=== PATIENT | male | born 1945 | race Caucasian/White ===

== ENCOUNTER → 2017-04-09 | Outpatient (CLI) | payer MEDICARE, OTHER ==
[2017-04-09 13:12] LABS: BASOPHILS # (AUTO) 0.1 10^3/uL (0.0-0.1); BASOPHILS % (AUTO) 0 % (0-10); EOSINOPHILS # (AUTO) 0.3 10^3/uL (0.0-0.3); EOSINOPHILS % (AUTO) 2 % (0-10); LYMPHOCYTES # (AUTO) 2.3 X 10^3 (1.0-4.0); LYMPHOCYTES % (AUTO) 12 % (12-44); MEAN CORPUSCULAR HEMOGLOBIN 29 PG (25-34); MEAN CORPUSCULAR HGB CONC 30 G/DL (32-36); MEAN CORPUSCULAR VOLUME 96 FL (80-99); MEAN PLATELET VOLUME 9.2 FL (7.4-10.4); MONOCYTES # (AUTO) 1.9 X 10^3 (0.0-1.0); MONOCYTES % (AUTO) 10 % (0-12); NEUTROPHILS # (AUTO) 14.4 X 10^3 (1.8-7.8); NEUTROPHILS % (AUTO) 76 % (42-75); PLATELET COUNT 429 10^3/uL (130-400); RED BLOOD COUNT 2.74 10^6/uL (4.35-5.85); RED CELL DISTRIBUTION WIDTH 14.7 % (10.0-14.5)
[2017-04-09 13:26] LABS: ANION GAP 6 MMOL/L (5-14); BLOOD UREA NITROGEN 14 MG/DL (7-18); BUN/CREATININE RATIO 20; CARBON DIOXIDE 33 MMOL/L (21-32); CHLORIDE 98 MMOL/L (98-107); CREATININE SERUM 0.69 MG/DL (0.60-1.30); GFR ESTIMATED > 60; GLUCOSE 91 MG/DL (70-105); MAGNESIUM 1.8 MG/DL (1.8-2.4); POTASSIUM 4.1 MMOL/L (3.6-5.0); SODIUM 137 MMOL/L (135-145)
[2017-04-09 13:52] LABS: BAND NEUTROPHILS 5 %; BASOPHILS % (MANUAL) 0 %; EOSINOPHILS % (MANUAL) 2 %; LYMPHOCYTES % (MANUAL) 6 %; MYELOCYTES % 6 %; NEUTROPHILS % (MANUAL) 72 %
[2017-04-09 13:53] LABS: ANISOCYTOSIS SLIGHT; POLYCHROMASIA SLIGHT
== END ==
LOC: HH 11:00
PROVIDERS: ATTEND Thoracic Surgery (Cardiothoracic Vascular Surgery)
DX: I10 Essential (primary) hypertension (principal); D64.9 Anemia, unspecified; Z95.2 Presence of prosthetic heart valve
CPT/HCPCS: 80048; 83735; 85007; 85027

== ENCOUNTER 2018-10-31 10:32 | Emergency (ER) | payer MEDICARE, OTHER ==
[~2018-10-31] VITALS: Ht 175.3 cm; Wt 81.6 kg
--- OUTSIDE RECORDS SUMMARY | 2018-10-31 10:38 | XMS REPORT | Continuity of Care Document ---
Author Organization Unknown Address Unknown Allergies There is no data. Medications There is no data. Problems Date Dx Coded Attending Type Code Diagnosis Diagnosed By 10/05/2015 JUAN KEMP MD, Ot Z47.89 10/05/2015 JUAN KEMP MD, Ot Z98.1 10/27/2015 JUAN KMEP MD, Ot Z47.89 ENCOUNTER FOR OTHER ORTHOPEDIC AFTERCARE 10/27/2015 JUAN KEMP MD, Ot Z98.1 ARTHRODESIS STATUS 05/01/2017 JUAN KEMP MD, Ot Z47.89 ENCOUNTER FOR OTHER ORTHOPEDIC AFTERCARE 05/01/2017 JUAN KEMP MD, Ot Z98.1 ARTHRODESIS STATUS 05/01/2017 ROMY CASTRO MD, Ot D64.9 ANEMIA, UNSPECIFIED 05/01/2017 ROMY CASTRO MD, Ot I10 ESSENTIAL (PRIMARY) HYPERTENSION 05/01/2017 ROMY CASTRO MD, Ot Z95.2 PRESENCE OF PROSTHETIC HEART VALVE 05/02/2017 DEUCE SHAFFER MD Ot Z87.442 PERSONAL HISTORY OF URINARY CALCULI 05/03/2017 ROMY CASTRO MD, Ot D64.9 ANEMIA, UNSPECIFIED 05/03/2017 ROMY CASTRO MD, Ot I10 ESSENTIAL (PRIMARY) HYPERTENSION 05/03/2017 ROMY CASTRO MD, Ot Z95.2 PRESENCE OF PROSTHETIC HEART VALVE 05/23/2017 DEUCE SHAFFER MD, Ot Z87.442 PERSONAL HISTORY OF URINARY CALCULI Procedures There is no data. Results Test Result Range Complete blood count (CBC) with automated white blood cell (WBC) differential - 04/09/17 11:00 Blood leukocytes automated count (number/volume) 19.0 10*3/uL 4.3-11.0 Blood erythrocytes automated count (number/volume) 2.74 10*6/uL 4.35-5.85 Venous blood hemoglobin measurement (mass/volume) 7.9 g/dL 13.3-17.7 Blood hematocrit (volume fraction) 26 % 40-54 Automated erythrocyte mean corpuscular volume 96 [foz_us] 80-99 Automated erythrocyte mean corpuscular hemoglobin (mass per erythrocyte) 29 pg 25-34 Automated erythrocyte mean corpuscular hemoglobin concentration measurement ( mass/volume) 30 g/dL 32-36 Automated erythrocyte distribution width ratio 14.7 % 10.0-14.5 Automated blood platelet count (count/volume) 429 10*3/uL 130-400 Automated blood platelet mean volume measurement 9.2 [foz_us] 7.4-10.4 Automated blood neutrophils/100 leukocytes 76 % 42-75 Automated blood lymphocytes/100 leukocytes 12 % 12-44 Blood monocytes/100 leukocytes 10 % 0-12 Automated blood eosinophils/100 leukocytes 2 % 0-10 Automated blood basophils/100 leukocytes 0 % 0-10 Blood neutrophils automated count (number/volume) 14.4 10*3 1.8-7.8 Blood lymphocytes automated count (number/volume) 2.3 10*3 1.0-4.0 Blood monocytes automated count (number/volume) 1.9 10*3 0.0-1.0 Automated eosinophil count 0.3 10*3/uL 0.0-0.3 Automated blood basophil count (count/volume) 0.1 10*3/uL 0.0-0.1 Whole blood basic metabolic panel - 04/09/17 11:00 Serum or plasma sodium measurement (moles/volume) 137 mmol/L 135-145 Serum or plasma potassium measurement (moles/volume) 4.1 mmol/L 3.6-5.0 Serum or plasma chloride measurement (moles/volume) 98 mmol/L 98-107 Carbon dioxide 33 mmol/L 21-32 Serum or plasma anion gap determination (moles/volume) 6 mmol/L 5-14 Serum or plasma urea nitrogen measurement (mass/volume) 14 mg/dL 7-18 Serum or plasma creatinine measurement (mass/volume) 0.69 mg/dL 0.60-1.30 Serum or plasma urea nitrogen/creatinine mass ratio 20 NRG Serum or plasma creatinine measurement with calculation of estimated glomerular filtration rate > NRG Serum or plasma glucose measurement (mass/volume) 91 mg/dL 70-105 Serum or plasma calcium measurement (mass/volume) 8.0 mg/dL 8.5-10.1 Magnesium - 04/09/17 11:00 Magnesium 1.8 mg/dL 1.8-2.4 Blood manual differential performed detection - 04/09/17 11:00 Blood monocytes/100 leukocytes 9 % NRG Manual blood segmented neutrophils/100 leukocytes 72 % NRG Blood band neutrophils/100 leukocytes 5 % NRG Manual blood lymphocytes/100 leukocytes 6 % NRG Manual eosinophils/100 leukocytes in nose 2 % NRG Manual blood basophils/100 leukocytes 0 % NRG Blood polychromasia detection by light microscopy SLIGHT NRG Blood anisocytosis detection by light microscopy SLIGHT NRG Blood macrocytes detection by light microscopy SLIGHT NRG Manual blood myelocytes/100 leukocytes 6 % NRG Encounters ACCT No. Visit Date/Time Discharge Status Pt. Type Provider Facility Loc./Unit Complaint [id number] 05/01/2017 13:09:00 05/01/2017 23:59:59 CLS Outpatient EDMUND PFEIFFER, DEUCE Lino [facility] RAD HISTORY OF STONES [id number] 04/09/2017 11:00:00 04/09/2017 23:59:59 CLS Outpatient ROMY CASTRO MD [facility] HH POST VALUE REPLACEMENT [id number] 10/04/2015 07:29:00 10/04/2015 23:59:59 CLS Outpatient JUAN KEMP MD [facility] RAD POST OP SPINAL FUSION
--- OUTSIDE RECORDS SUMMARY | 2018-10-31 10:38 | XMS REPORT | Clinical Summary ---
Author Author [facility] Organization [facility] Address Unknown Phone Unavailable Care Team Providers Care Manager Process Excellence Name Role Phone PCP Unavailable Allergies Not on File Current Medications Not on file Active Problems Not on file Social History Tobacco Use Types Packs/Day Years Used Date Never Assessed Sex Assigned at Date Recorded Not on file Last Filed Vital Signs Not on file Plan of Treatment Not on file Results Not on filefrom Last 3 Months
--- NOTE | 2018-10-31 11:00 | ED Fall/Injury ---
General Chief Complaint: Lower Extremity Stated Complaint: FALL; RT KNEE INJ Source: patient Exam Limitations: no limitations History of Present Illness Date Seen by Provider: October 31, 2018 Time Seen by Provider: 10:40 Initial Comments Patient presents to ER by private conveyance with his significant other and chief complaint that yesterday he was walking tripped on something and caused him to fall down on both of his knees. He scraped up his left knee and did not seem to have any outward injury to his right knee but he has pain and difficulty walking on it and he was afraid he may have chipped something. He has a history of bad osteoarthritis of his knee and has had an anterior cruciate ligament tear in the past as well as a couple scopes. He sees a shop technician and CT surgeon Dr. Medley and Dr. Robles at [place], [place] respectively. He has a history of valve replacement and one stent. He does occasionally use Aleve but he's been told not to use NSAIDs by his shop technician. He's been using Tylenol and ice for his knee and recently with only minimal relief. He does have a walker at home but he's not been using it. He did fall and have a small abrasion to his chest but he denies striking his head nor loss of consciousness. He uses daily 81 mg aspirin but no blood thinners. Allergies and Home Medications Allergies Coded Allergies: acetaminophen (Verified Allergy, Unknown, 10/31/18) codeine (Verified Allergy, Unknown, 10/31/18) hydrocodone (Verified Allergy, Unknown, 10/31/18) rofecoxib (Verified Allergy, Unknown, 10/31/18) Patient Home Medication List Home Medication List Reviewed: Yes Review of Systems Review of Systems Constitutional: No chills, No diaphoresis Eyes: Denies Blindness, Denies Blurred Vision Ears, Nose, Mouth, Throat: denies ear discharge, denies nose pain Respiratory: No cough, No short of breath Cardiovascular: No chest pain, No edema Gastrointestinal: No abdominal pain, No nausea Genitourinary: No discharge, No dysuria Musculoskeletal: see HPI; No back pain; joint pain Physical Exam Vital Signs Vital Signs - First Documented 10/31/18 10:35 Temp 97.9 Pulse 98 Resp 18 B/P (MAP) 111/90 (97) Pulse Ox 96 O2 Delivery Room Air Capillary Refill : Height, Weight, BMI Height: '" Weight: lbs. oz. kg; BMI Method: General Appearance: WD/WN, no apparent distress HEENT: PERRL/EOMI, pharynx normal Neck: non-tender, full range of motion, normal inspection Cardiovascular: normal peripheral pulses, regular rate, rhythm, other ( popliteal pulse 2 out of 4 right) Respiratory: no respiratory distress, no accessory muscle use Extremities: normal range of motion (pain on flexion of the knee right), normal capillary refill, other (mild tenderness to the right distal medial Femur. Minimal right knee effusion with some modest crepitus and obvious osteoarthritis on palpation. No laxity or pain to the MCL or LCL. Anterior cruciate ligament has a little bit of laxity on Cecilia's and anterior drawer test.) Neurologic/Psychiatric: no motor/sensory deficits, alert, normal mood/affect, oriented x 3 Skin: other (minor abrasion on chest) Progress/Results/Core Measures Results/Orders My Orders Orders - KELSEY RIVERA Knee 2 View Right (10/31/18 10:53) Vital Signs/I&O 10/31/18 10:35 Temp 97.9 Pulse 98 Resp 18 B/P (MAP) 111/90 (97) Pulse Ox 96 O2 Delivery Room Air Progress Progress Note : Time: 11:00 Progress Note We'll recommend localized NSAID therapy such as Voltaren or Aspercreme as opposed to full dose anti-inflammatory NSAID therapy given his history of coronary disease and what sounds like they're describing to be dilated cardiomyopathy with recovered ejection fraction 40% up from 10% and a valve replacement. The cardiac history is per patient only. We'll get a plain film x- ray of the knee and if no fractures are seen and we'll have him follow-up in one week with the orthopedic surgeon who has been scoping his knee in the past for reexamination. Diagnostic Imaging Diagonstic Imaging: Xray Plain Films/CT/US/NM/MRI: knee (right) Comments No previous images to compare to. There is an ossicle in the medial knee that is likely chronic. No acute osseous fracture. Narrowed medial joint space and moderate to advanced osteoarthritis. Hardware noted. [facility] [place], [place] NAME: ROMULO FUNG [facility] REC#: [id number] PT STATUS: REG ER : 1945 PHYSICIAN: KELSEY RIVERA MD ADMIT DATE: 10/31/18/ER FS Draft Date of Exam:10/31/18 KNEE 2 VIEW RIGHT INDICATION: Knee pain. History of fall. COMPARISON: None FINDINGS: Frontal and lateral radiographic views of the right knee were obtained. Orthopedic staple is noted within the medial femoral condyle. There is no unexpected radiopaque foreign body. There is no evidence of acute fracture or dislocation. Osseous structures are intact. There are tricompartmental osteoarthritic changes consisting of joint space narrowing with osteophyte formations. This is greatest involving the medial tibiofemoral compartment. Joint spaces are otherwise maintained. There is no large joint effusion. IMPRESSION: 1. No acute fracture or dislocation of the right knee. 2. Moderate tricompartmental osteoarthritis. Dictated on workstation # [id number] Dict: 10/31/18 1112 Trans: 10/31/18 1117 JUAN FRANCISCO [id number] Interpreted by: ROSS PÉREZ MD Electronically signed by: Reviewed: Reviewed by Me Departure Impression Primary Impression: Fall Qualified Codes: W19.XXXA - Unspecified fall, initial encounter Additional Impressions: Right knee sprain Qualified Codes: S83.511A - Sprain of anterior cruciate ligament of right knee , initial encounter Contusion of right knee, initial encounter Abrasion Disposition: 01 HOME, SELF-CARE Condition: Stable Departure-Patient Inst. Decision time for Depature: 11:23 Referrals: CHRIS RASHID MD (PCP) Primary Care Physician Patient Instructions: Knee Sprain (DC) Add. Discharge Instructions: Keep the knee wrapped with an Alex bandage or neoprene knee sleeve and ice it every 2-4 hours for the first 2-3 days. Use the Voltaren gel every 6 hours as needed for pain relief. You can also use heat or topical creams such as icy hot/Biofreeze/Capsaicin oil etc. Plan to follow up with your orthopedic surgeon in 1 week for reexamination of the knee. Use a walker or cane to help with mobility and reduce the risk of falls. All discharge instructions reviewed with patient and/or family. Voiced understanding. KELSEY RIVERA October 31, 2018 11:00
--- NOTE | 2018-10-31 11:17 | Diagnostic Imaging Report ---
INDICATION: Knee pain. History of fall. COMPARISON: None FINDINGS: Frontal and lateral radiographic views of the right knee were obtained. Orthopedic staple is noted within the medial femoral condyle. There is no unexpected radiopaque foreign body. There is no evidence of acute fracture or dislocation. Osseous structures are intact. There are tricompartmental osteoarthritic changes consisting of joint space narrowing with osteophyte formations. This is greatest involving the medial tibiofemoral compartment. Joint spaces are otherwise maintained. There is no large joint effusion. IMPRESSION: 1. No acute fracture or dislocation of the right knee. 2. Moderate tricompartmental osteoarthritis. Dictated by: Dictated on workstation # [id number]
[2018-10-31] MEDS ORDERED: DICL100G18 TP (11:35)
[2018-10-31 11:46] VITALS: BP 105/85
== END 2018-10-31 11:45 | disposition home or self-care (01) ==
LOC: EDUNIT# 10:32 → ER FS 10:34
DX: S83.511A Sprain of anterior cruciate ligament of right knee, initial encounter (principal); Z88.5 Allergy status to narcotic agent; Z88.8 Allergy status to other drugs, medicaments and biological substances; Z95.2 Presence of prosthetic heart valve; Z95.5 Presence of coronary angioplasty implant and graft; W01.0XXA Fall on same level from slipping, tripping and stumbling without subsequent striking against object, initial encounter
CPT/HCPCS: 73560

== ENCOUNTER → 2019-01-29 | Outpatient (CLI) | payer MEDICARE, OTHER ==
[~2019-01-29] MED LIST: DICL100G18 TP
--- NOTE | 2019-01-29 11:00 | Diagnostic Imaging Report ---
PROCEDURE: CT abdomen and pelvis without contrast. TECHNIQUE: Multiple contiguous axial images were obtained through the abdomen and pelvis without the use of intravenous contrast. Auto Exposure Controls were utilized during the CT exam to meet ALARA standards for radiation dose reduction. INDICATION: Kidney cyst for two years. COMPARISON: No prior studies are available for comparison. FINDINGS: There is scarring in the right middle lobe and lingula. There is a tiny subpleural nodule in lateral aspect of right middle lobe, approximately 2 mm in size. No other parenchymal mass is identified. Liver is unremarkable. The gallbladder is surgically absent. No biliary ductal dilatation is seen. The pancreas and spleen are unremarkable. No adrenal mass is identified. There is a low density mass in upper pole of right kidney measuring 5.5 cm. This is most consistent with a cyst. A hyperdense lesion in upper pole of left kidney is noted measuring 12 mm. A renal sinus cyst on the right measures 3.5 cm. No calculi are seen. There is no hydronephrosis. Aorta is calcified but nonaneurysmal. The small and large bowel loops are normal in caliber. There is diverticulosis of the sigmoid but no evidence of acute diverticulitis. The bladder is diffusely thickwalled. Prostate does not appear to be appreciably enlarged. No abdominal or pelvic lymphadenopathy is detected. Bony structures demonstrate postop changes of posterior instrumented fusion with vertical stabilization rods and pedicle screws transfixing the L3 through S1 levels. Decompression laminectomy at these levels is also noted. IMPRESSION: 1. A simple-appearing right renal cyst. 2. Hyperdense lesion in upper pole of left kidney. This indeterminate between a hemorrhagic cyst versus solid lesion. Continued followup to confirm stability is recommended. No calculi or hydronephrosis is detected. 3. Uncomplicated sigmoid diverticulosis. 4. Diffuse bladder wall thickening. While this may be secondary to chronic bladder outlet obstruction, cystitis cannot be entirely excluded. 5. No other significant abnormality is detected. Dictated by: Dictated on workstation # [id number]
== END ==
LOC: RAD FS 09:23
PROVIDERS: ATTEND Family Medicine
DX: N28.1 Cyst of kidney, acquired (principal); K57.30 Diverticulosis of large intestine without perforation or abscess without bleeding; N32.89 Other specified disorders of bladder
CPT/HCPCS: 74176

== ENCOUNTER 2019-02-14 22:45 | Emergency (ER) | payer MEDICARE, OTHER | END 2019-02-15 01:25 | disposition short-term general hospital (02) | LOC: ER FS 22:45 ==

== ENCOUNTER → 2019-08-18 | Outpatient (CLI) | payer MEDICARE, OTHER ==
--- NOTE | 2019-08-18 12:15 | Diagnostic Imaging Report ---
PROCEDURE: CT abdomen and pelvis without contrast. TECHNIQUE: Multiple contiguous axial images were obtained through the abdomen and pelvis without the use of intravenous contrast. Auto Exposure Controls were utilized during the CT exam to meet ALARA standards for radiation dose reduction. INDICATION: Newly diagnosed prostate carcinoma. Patient also complains of left lower quadrant pain. COMPARISON: Correlation is made with prior CT from 01/29/2019. FINDINGS: The lung bases are clear. No discrete liver mass is detected. The gallbladder is surgically absent. There is no biliary ductal dilatation. Pancreas and spleen are unremarkable. No adrenal mass is detected. Previously noted low-density lesion in the upper pole right kidney is stable at 5.5 cm. Cystic lesion in the mid portion of the right kidney also appears stable. Previously noted hyperdense lesion in the upper pole of the left kidney is stable at 11 mm. No calculi or hydronephrosis is identified. Aorta is calcified but non-aneurysmal. No central retroperitoneal or mesenteric lymphadenopathy is seen. Bowel loops are nonobstructed. Previously noted bladder wall thickening is not appreciated on today's study. Prostate is normal in size. No definite pelvic lymphadenopathy is identified. Postsurgical changes to the lower lumbar spine are noted. IMPRESSION: 1. Stable bilateral renal masses when compared with exam from 01/29/2019. 2. No evidence of abdominal or pelvic lymphadenopathy or metastatic disease. Dictated by: Dictated on workstation # [id number]
--- NOTE | 2019-08-18 15:12 | Diagnostic Imaging Report ---
INDICATION: Newly diagnosed prostate carcinoma. TECHNIQUE: Patient was administered 27.0 mCi technetium 99m MDP intravenously and whole-body imaging was performed after a three-hour delay. COMPARISON: No prior whole body bone scans are available for comparison. FINDINGS: There is normal uptake of activity by the axial and appendicular skeleton. There is uptake by the kidneys with excretion into the urinary bladder. Moderate uptake about the left shoulder is noted which is likely degenerative. There is also degenerative changes of the right knee. There is a small focus of uptake involving a right posterior rib, approximately the right posterior ninth rib. This is indeterminate. There are some degenerative changes in the mid and lower thoracic spine as well as lumbar spine. IMPRESSION: Degenerative uptake, as described. There is a tiny focus of uptake involving the right posterior ninth rib, indeterminate. Continued follow-up is recommended. Dictated by: Dictated on workstation # [id number]
== END ==
LOC: CARD 11:19
PROVIDERS: ATTEND Urology
DX: C61 Malignant neoplasm of prostate (principal); N28.9 Disorder of kidney and ureter, unspecified; M47.816 Spondylosis without myelopathy or radiculopathy, lumbar region; M47.814 Spondylosis without myelopathy or radiculopathy, thoracic region; M17.11 Unilateral primary osteoarthritis, right knee
CPT/HCPCS: 74176; 78306

== ENCOUNTER 2019-09-10 09:51 | Outpatient (RCR) | payer MEDICARE, OTHER | END 2019-12-09 | disposition home or self-care (01) | LOC: ONC 09:51 | PROVIDERS: ATTEND Radiology Radiation Oncology | DX: C61 Malignant neoplasm of prostate (principal); I25.10 Atherosclerotic heart disease of native coronary artery without angina pectoris; I10 Essential (primary) hypertension; Z86.79 Personal history of other diseases of the circulatory system; Z87.01 Personal history of pneumonia (recurrent); Z90.49 Acquired absence of other specified parts of digestive tract; Z95.2 Presence of prosthetic heart valve; Z95.5 Presence of coronary angioplasty implant and graft; Z90.89 Acquired absence of other organs; Z98.890 Other specified postprocedural states | CPT/HCPCS: 99204 ==

== ENCOUNTER → 2020-02-25 | Outpatient (CLI) | payer MEDICARE, OTHER ==
--- NOTE | 2020-02-25 10:07 | Diagnostic Imaging Report ---
INDICATION: Infection. FINDINGS: There are degenerative changes in the DIP and PIP joints. There is no fracture or dislocation. There is no definitive radiographic evidence of osteomyelitis. Soft tissues are unremarkable. IMPRESSION: Osteopenia and degenerative change, however, no acute fracture or dislocation. No definitive radiographic evidence of osteomyelitis. If there is high clinical concern, further evaluation with gadolinium-enhanced MRI should be considered. Dictated by: Dictated on workstation # [id number]
== END ==
LOC: RAD FS 09:27
PROVIDERS: ATTEND Nurse Practitioner Family
DX: L97.519 Non-pressure chronic ulcer of other part of right foot with unspecified severity (principal); M19.071 Primary osteoarthritis, right ankle and foot; M85.80 Other specified disorders of bone density and structure, unspecified site
CPT/HCPCS: 73660

== ENCOUNTER → 2020-03-24 | Outpatient (CLI) | payer MEDICARE, OTHER | LOC: WOUNDCARE 08:56 | PROVIDERS: ATTEND Surgery | DX: L84 Corns and callosities (principal); I50.9 Heart failure, unspecified | CPT/HCPCS: 99213 ==

== ENCOUNTER → 2020-04-07 | Outpatient (CLI) | payer MEDICARE, OTHER | LOC: WOUNDCARE 09:15 | PROVIDERS: ATTEND Surgery | DX: L84 Corns and callosities (principal); I50.9 Heart failure, unspecified; I51.9 Heart disease, unspecified | CPT/HCPCS: 99212 ==

== ENCOUNTER → 2021-06-28 | Outpatient (CLI) | payer MEDICARE, OTHER ==
--- NOTE | 2021-06-28 12:36 | Diagnostic Imaging Report ---
INDICATION: Right lower rib pain x4 days 4 views of the right ribs are obtained There are no displaced fractures. Lungs are clear. There are no effusions or pneumothoraces. The patient has postsurgical changes from right shoulder arthroplasty, CABG surgery and fusion of the lumbar spine. IMPRESSION: No acute abnormality seen in the right ribs. Dictated by: Dictated on workstation # [id number]
== END ==
LOC: RAD FS 10:05
PROVIDERS: ATTEND Family Medicine
DX: R07.81 Pleurodynia (principal)
CPT/HCPCS: 71100

== ENCOUNTER 2021-09-27 15:37 | Emergency (ER) | payer MEDICARE, OTHER ==
[~2021-09-27] VITALS: Ht 177 cm; Wt 75.0 kg
[2021-09-27 15:54] VITALS: BP 104/52
--- NOTE | 2021-09-27 16:08 | ED Back Pain ---
General Chief Complaint: Back Problems Stated Complaint: PAIN IN LOWER BACK/L LEG Source of Information: Patient, Spouse History of Present Illness Date Seen by Provider: Sep 27, 2021 Time Seen by Provider: 15:46 Initial Comments 76-year-old male presenting with complaints of low back pain radiating into his left leg. He states that this is been worsening over the last 7 to 10 days. He has been doing more activity in the garden. He feels like he may have overdone things and strained his back. He had increased pain last night and found it difficult to be able to find a comfortable position at rest. They had driven up to [place] today and on the trip back home he was having increased pain so rather than go through another night of increased pain with out sleep he came to the emergency department. He has had flareups of back pain in the past because he has had multiple surgeries on his back and has chronic arthritic changes. He previously has been seen in the ED about 4 years ago for back pain and at that time received IM medications of fentanyl 100 mcg, Decadron 10 mg IM, Norflex 60 mg IM. He reports that those medicines had done well to help control his pain. He denies any direct trauma to his back or a fall that would have injured his back. He has had no loss of bowel or bladder control. He has been taking Tylenol for his chronic pain but recently has not been working as well. Location: Lumbar Spine, Paraspinous Muscles, Other (Left hip and SI joint radiating into his left leg) Timing/Duration: Getting Worse (Over the last 7 to 10 days) Severity: Severe Pain/Injury Location: Back, Lower Extremity (Left leg) Radiation: Upper Legs (Left leg) Method of Injury: Other (Increased activity with working in the garden) Modifying Factors: Worse With Movement Associated Symptoms: muscle spasms; No fever, No weakness, No numbness in legs/feet; tingling in legs/feet; No sensory/motor loss; lower back pain; No loss of bladder control, No loss of bowel control Allergies and Home Medications Allergies Coded Allergies: acetaminophen (Verified Allergy, Unknown, 10/31/18) codeine (Verified Allergy, Unknown, 10/31/18) hydrocodone (Verified Allergy, Unknown, 10/31/18) rofecoxib (Verified Allergy, Unknown, 10/31/18) Patient Home Medication List Home Medication List Reviewed: Yes Diclofenac Sodium (Voltaren) 100 Gm Gel..gram., 1 GM TP Q6H PRN for PAIN-MILD TO MODERATE Prescribed by: KELSEY RIVERA on 10/31/18 1135 Tramadol HCl (Tramadol HCl) 50 Mg Tablet, 50 MG PO Q6H PRN for PAIN-SEVERE (8- 10) Prescribed by: VALENTINE VERGARA on 09/27/21 1723 Review of Systems Constitutional: No chills, No fever EENTM: no symptoms reported Respiratory: no symptoms reported Cardiovascular: no symptoms reported Gastrointestinal: abdominal pain (Abdominal cramping at times), nausea Genitourinary: no symptoms reported Musculoskeletal: see HPI Skin: No rash Psychiatric/Neurological: See HPI Past Zdpajsc-Vebxix-Pfqbzm Hx Patient Social History Tobacco Use?: No Use of E-Cig and/or Vaping dev: No Substance use?: No Alcohol Use?: No Pt feels they are or have been: Unable to obtain Seasonal Allergies Seasonal Allergies: No Past Medical History Surgeries: Yes (heart valve replacement; knee scope; EGD) Cardiac, Coronary Stent, Orthopedic Respiratory: No Cardiac: Yes (CHF ) Cardiomyopathy, Valvular Heart Disease Integumentary: No Physical Exam Vital Signs Vital Signs - First Documented 09/27/21 15:54 Temp 35.9 Pulse 76 Resp 16 B/P (MAP) 104/52 (69) Pulse Ox 97 O2 Delivery Room Air Capillary Refill : Height, Weight, BMI Height: 5'9.50" Weight: 190lbs. oz. 86.144164gv; BMI Method:Stated General Appearance: No Apparent Distress, WD/WN Neck: Full Range of Motion, Normal Inspection, Non Tender, Supple Cardiovascular: Regular Rate, Rhythm, Normal Peripheral Pulses Respiratory: Chest Non Tender, Lungs Clear, Normal Breath Sounds, No Accessory Muscle Use, No Respiratory Distress Gastrointestinal: Normal Bowel Sounds, No Pulsatile Mass, Non Tender, Soft Back: No CVA Tenderness, Muscle Spasm (Paraspinal muscle spasm), Vertebral Tenderness (Lumbar spine lower area particularly), Other (Tender to palpation over the left SI joint) Extremity: Normal Capillary Refill, Normal Inspection, No Pedal Edema, Other Neurologic/Psychiatric: Alert, Oriented x3, 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 seating II-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 Norm as Tested Skin: Normal Color, Warm/Dry Progress/Results/Core Measures Results/Orders My Orders Orders - VALENTINE VERGARA MD Fentanyl Inj (Sublimaze Injection) (09/27/21 16:17) Dexamethasone Injection (Decadron Inje (09/27/21 16:17) Orphenadrine Inj (Ed Only) (Norflex Inje (09/27/21 16:17) Ct Lumbar Spine Wo (09/27/21 16:18) Ct Pelvis Wo (09/27/21 16:18) Vital Signs/I&O 09/27/21 15:54 Temp 35.9 Pulse 76 Resp 16 B/P (MAP) 104/52 (69) Pulse Ox 97 O2 Delivery Room Air Progress Progress Note #1: Progress Note From review of his chart in the EMR for [facility] he had a visit to the ED in 2018 where he was given Fentanyl 100 mcg, Norflex 60 mg, Dexamethasone 10 mg all IM. These had helped his pain. Will repeat the medicines and add on a CT scan of Lumbar spine and pelvis to look for acute bony abnormality in L spine or SI joints that would be causing his increased pain. Progress Note #2: Progress Note Patient reports improvement in his pain and symptoms with treatment here in the ED. Reviewed with him and his spouse the CT scans showed spinal stenosis especially at L2-L3. He has degenerative changes but no acute fractures. His hardware is still in place. Will prescribe a few days of tramadol to try and help with his increased pain. Continue with Tylenol as well. If he continues to have worsening symptoms he would need to follow-up through the clinic as he may need physical therapy or to see a marketing production specialist Diagnostic Imaging Diagonstic Imaging: CT Plain Films/CT/US/NM/MRI: other Comments NAME: ANTONIETALEIGHROMULO [facility] REC#: [id number] PT STATUS: REG ER : 1945 PHYSICIAN: VALENTINE VERGARA MD ADMIT DATE: 09/27/21/ER FS Signed Date of Exam:09/27/21 CT LUMBAR SPINE WO PROCEDURE: CT lumbar spine without contrast. TECHNIQUE: Multiple contiguous axial images were obtained through the lumbar spine without the use of intravenous contrast. Sagittal and coronal reformations were then performed. Auto Exposure Controls were utilized during the CT exam to meet ALARA standards for radiation dose reduction. INDICATION: Acute low back pain. Left lower extremity radiculopathy. COMPARISON: 08/18/2019. FINDINGS: No acute fracture or dislocation is seen in the lumbar spine. Postsurgical changes of posterior fusion are visualized from L3 to S1 with bipedicle screws and fusion rods. No evidence of hardware fracture or loosening. There are disc spacers at the L3-L4 and L4-L5 levels with osseous fusion across these levels. Laminectomy has been performed at L4 and L5. There is right convexity curvature of the lumbar spine centered at the L3 level. Endplate sclerotic changes are visualized at the L1-L2 and L2-L3 levels. No suspicious focal osseous lesions. Degenerative changes are seen in the lumbar spine with disc osteophyte complexes and facet hypertrophy. These are greatest at the L2-L3 level with jhgyvfha-ha-eqzrxd spinal canal stenosis and qslyaena-tx-zbgkoc left and moderate right foraminal stenosis. The paraspinal soft tissues are unremarkable. IMPRESSION: 1. No acute fracture or dislocation in the lumbar spine. 2. Postsurgical changes of posterior fusion from L3 to S1. No evidence of hardware fracture or loosening. 3. Degenerative changes in the lumbar spine, greatest at L2-L3 with vfgdozaq-zg-rdbraq spinal canal stenosis and moderate right and zmxulobs-qp-huhzpp left foraminal stenosis. Dictated by: Dictated on workstation # [id number] Dict: 09/27/211645 Trans: 09/27/211656 [id number] Interpreted by: DURAN BAI DO Electronically signed by: DURAN ABI DO 09/27/211656 Reviewed: Reviewed by Wa Diagonstic Imaging: CT Plain Films/CT/US/NM/MRI: pelvis Comments [facility] [place] [place] NAME: ROMULO [facility] REC#: [id number] PT STATUS: REG ER : 1945 PHYSICIAN: VALENTINE VERGARA MD ADMIT DATE: 09/27/21/ER FS Draft Date of Exam:09/27/21 CT PELVIS WO PROCEDURE: CT pelvis without contrast. TECHNIQUE: Multiple contiguous axial images were obtained through the pelvis without the use of intravenous contrast. Sagittal and coronal reformations were performed. Auto Exposure Controls were utilized during the CT exam to meet ALARA standards for radiation dose reduction. INDICATION: Acute on chronic low back pain. SI joint pain. COMPARISON: CT lumbar spine performed concurrently. FINDINGS: There is no acute fracture within the pelvis or proximal femurs. No concerning focal osseous lesion. No sacral insufficiency fracture. 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 No features of avascular necrosis in the femoral heads. No free pelvic fluid. No pelvic or inguinal lymphadenopathy. Urinary bladder is normally filled. Fiducial markers are present within the prostate. IMPRESSION: 1. No sacral insufficiency fracture. 2. 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 Dictated on workstation # [id number] Dict: 09/27/21 1646 Trans: 09/27/21 1658 [id number] Interpreted by: SHAWNA SALMERON MD Electronically signed by: Reviewed: Reviewed by Me Departure Impression Primary Impression: Degenerative lumbar spinal stenosis Additional Impression: Low back pain radiating to left leg Disposition: 01 HOME, SELF-CARE Condition: Improved Departure-Patient Inst. Decision time for Depature: 17:17 Referrals: CAREY DOAN MD (PCP/Family) Primary Care Physician Patient Instructions: Low Back Pain ED, Opioids for Short-Term Treatment of Pain ED, Spinal Stenosis (DC) Add. Discharge Instructions: Continue on your medicines for chronic pain. For severe pain use the Tramadol Follow up with clinic for continued symptoms/concerns All discharge instructions reviewed with patient and/or family. Voiced understanding. Scripts Tramadol HCl (Tramadol HCl) 50 Mg Tablet 50 MG PO Q6H PRN for PAIN-SEVERE (8-10) for 10 Days, #40 TAB 0 Refills Prov: VALENTINE VERGARA MD 09/27/21 VALENTINE VERGARA MD Sep 27, 2021 16:08
[2021-09-27] MEDS ORDERED: ORPHENADRINE 60 MG/2 ML (NORFLEX) AMP (ED ONLY) IM STA (16:17)
[2021-09-27] MEDS ORDERED: fentaNYL INJ 100 MCG/2 ML AMP IM STA (16:17)
--- NOTE | 2021-09-27 16:56 | Diagnostic Imaging Report ---
PROCEDURE: CT lumbar spine without contrast. TECHNIQUE: Multiple contiguous axial images were obtained through the lumbar spine without the use of intravenous contrast. Sagittal and coronal reformations were then performed. Auto Exposure Controls were utilized during the CT exam to meet ALARA standards for radiation dose reduction. INDICATION: Acute low back pain. Left lower extremity radiculopathy. COMPARISON: 08/18/2019. FINDINGS: No acute fracture or dislocation is seen in the lumbar spine. Postsurgical changes of posterior fusion are visualized from L3 to S1 with bipedicle screws and fusion rods. No evidence of hardware fracture or loosening. There are disc spacers at the L3-L4 and L4-L5 levels with osseous fusion across these levels. Laminectomy has been performed at L4 and L5. There is right convexity curvature of the lumbar spine centered at the L3 level. Endplate sclerotic changes are visualized at the L1-L2 and L2-L3 levels. No suspicious focal osseous lesions. Degenerative changes are seen in the lumbar spine with disc osteophyte complexes and facet hypertrophy. These are greatest at the L2-L3 level with hcfggtud-uv-tyaphp spinal canal stenosis and iulsxygy-mj-bkwnfy left and moderate right foraminal stenosis. The paraspinal soft tissues are unremarkable. IMPRESSION: 1. No acute fracture or dislocation in the lumbar spine. 2. Postsurgical changes of posterior fusion from L3 to S1. No evidence of hardware fracture or loosening. 3. Degenerative changes in the lumbar spine, greatest at L2-L3 with wpfrjnvm-ng-jcfomd spinal canal stenosis and moderate right and ebeyyomw-tj-tabssy left foraminal stenosis. Dictated by: Dictated on workstation # [id number]
--- NOTE | 2021-09-27 16:58 | Diagnostic Imaging Report ---
PROCEDURE: CT pelvis without contrast. TECHNIQUE: Multiple contiguous axial images were obtained through the pelvis without the use of intravenous contrast. Sagittal and coronal reformations were performed. Auto Exposure Controls were utilized during the CT exam to meet ALARA standards for radiation dose reduction. INDICATION: Acute on chronic low back pain. SI joint pain. COMPARISON: CT lumbar spine performed concurrently. FINDINGS: There is no acute fracture within the pelvis or proximal femurs. No concerning focal osseous lesion. No sacral insufficiency fracture. 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 No features of avascular necrosis in the femoral heads. No free pelvic fluid. No pelvic or inguinal lymphadenopathy. Urinary bladder is normally filled. Fiducial markers are present within the prostate. IMPRESSION: 1. No sacral insufficiency fracture. 2. 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 Dictated by: Dictated on workstation # [id number]
[2021-09-27] MEDS ORDERED: TRM50T PO (17:23)
== END 2021-09-27 17:31 | disposition home or self-care (01) ==
LOC: EDUNIT# 15:37 → ER FS 15:38
DX: M48.061 Spinal stenosis, lumbar region without neurogenic claudication (principal)
CPT/HCPCS: 72131; 72192

== ENCOUNTER 2021-10-07 02:12 | Emergency (ER) | payer MEDICARE, OTHER ==
[~2021-10-07] VITALS: Ht 177 cm; Wt 75.0 kg
[~2021-10-07 02:12] MED LIST changes: +TRM50T PO
--- NOTE | 2021-10-07 02:33 | ED Back Pain ---
General Chief Complaint: Back Problems Stated Complaint: SEVERE BACK PAIN History of Present Illness Date Seen by Provider: Oct 07, 2021 Time Seen by Provider: 02:25 Initial Comments 76-year-old male presents with low back pain. Patient was working in the garden today when like a Rototiller and a home. Patient complains of diffuse lower back pain. Patient was seen for similar symptoms on 09/27/2021. At that time he had a CT lumbar CT pelvis. Show some degenerative change, some postsurgical changes in the lumbar spine. No new significant changes no acute fractures. Patient reports he tried some ibuprofen and Tylenol at home. Patient was seen at by his primary care provider today and started on steroid and amoxicillin for sinusitis. Allergies and Home Medications Allergies Coded Allergies: acetaminophen (Verified Allergy, Unknown, 10/31/18) codeine (Verified Allergy, Unknown, 10/31/18) hydrocodone (Verified Allergy, Unknown, 10/31/18) rofecoxib (Verified Allergy, Unknown, 10/31/18) Patient Home Medication List Home Medication List Reviewed: Yes Amoxicillin/Potassium Clav (Amox Tr-K Clv 875-125 mg Tab) 1 Each Tablet, (Reported) Entered as Reported by: JOSE ZAMORA on 10/07/21236 Last Action: New Order Diclofenac Sodium (Voltaren) 100 Gm Gel..gram., 1 GM TP Q6H PRN for PAIN-MILD TO MODERATE Prescribed by: KELSEY RIVERA on 10/31/18 1135 Prednisone (Prednisone) 10 Mg Tab, (Reported) Entered as Reported by: JOSE ZAMORA on 10/07/21236 Last Action: New Order Tramadol HCl (Tramadol HCl) 50 Mg Tablet, 50 MG PO Q6H PRN for PAIN-SEVERE (8- 10) Prescribed by: VALENTINE VERGARA on 09/27/21 1723 Review of Systems Constitutional: no symptoms reported EENTM: see HPI Respiratory: no symptoms reported Cardiovascular: no symptoms reported Gastrointestinal: no symptoms reported Genitourinary: no symptoms reported Musculoskeletal: see HPI, back pain Skin: no symptoms reported Psychiatric/Neurological: No Symptoms Reported Past Bswzazg-Kzivaq-Slroha Hx Seasonal Allergies Seasonal Allergies: No Past Medical History Surgeries: Yes (heart valve replacement; knee scope; EGD) Cardiac, Coronary Stent, Orthopedic Respiratory: No Cardiac: Yes (CHF ) Cardiomyopathy, Valvular Heart Disease Integumentary: No Physical Exam Vital Signs Vital Signs - First Documented 10/07/21 02:17 Temp 35.5 Pulse 65 Resp 18 B/P (MAP) 128/56 (80) Pulse Ox 100 O2 Delivery Room Air Capillary Refill : Height, Weight, BMI Height: 5'9.50" Weight: 190lbs. oz. 86.583668hv; 23.00 BMI Method:Stated General Appearance: No Apparent Distress Cardiovascular: Regular Rate, Rhythm, No Edema Respiratory: Lungs Clear, Normal Breath Sounds Gastrointestinal: Non Tender, Soft Extremity: Normal Capillary Refill, Normal Inspection, Normal Range of Motion, Other (Diffuse mild tenderness low back) Neurologic/Psychiatric: Alert, Oriented x3 Skin: Normal Color, Warm/Dry Progress/Results/Core Measures Results/Orders My Orders Orders - GAURAV OTOOLE DO Ketorolac Injection (Toradol Injection) (10/07/21 02:36) Norflex 60 Mg Im (10/07/21 02:36) Vital Signs/I&O 10/07/21 02:17 Temp 35.5 Pulse 65 Resp 18 B/P (MAP) 128/56 (80) Pulse Ox 100 O2 Delivery Room Air Progress Progress Note : Progress Note Patient with low back pain is likely result of overuse injury and increase activity from his gardening and Hoeing. Patient was given a Toradol and Norflex injection. I prescribed him Flexeril. He already has prescribed tramadol which he can continue. Also recommend oobj-xvp-jnesagq lidocaine cream, Voltaren or capsaicin cream along with warm moist heat. Recommended patient follow-up with his primary care provider if symptoms continue. Patient stable and discharged Departure Impression Primary Impression: Lumbar sprain Qualified Codes: S33.5XXA - Sprain of ligaments of lumbar spine, initial encounter Additional Impression: Overuse syndrome of low back Qualified Codes: S39.012A - Strain of muscle, fascia and tendon of lower back, initial encounter; X50.3XXA - Overexertion from repetitive movements, initial encounter Disposition: 01 HOME, SELF-CARE Condition: Stable Departure-Patient Inst. Referrals: SELF,CAREY PFEIFFER (PCP/Family) Primary Care Physician Patient Instructions: Back Muscle Strain (DC), Low Back Pain (DC), Exercise Band Exercises for the Back and Hips Add. Discharge Instructions: Warm moist heat to low back, 20 minutes at a time 4-5 times daily 4% topical lidocaine with menthol, cream gel or patch use as directed on package Diclofenac/Voltaren cream, use as directed on package Capsaicin cream can also be used, use as directed on package Follow-up with your primary care provider for long-term management and physical therapy if it becomes recurrent All discharge instructions reviewed with patient and/or family. Voiced understanding. Scripts Cyclobenzaprine HCl (Cyclobenzaprine HCl) 5 Mg Tablet 5 MG PO Q8H PRN for PAIN-SEVERE (8-10), #20 TAB Prov: GAURAV OTOOLE DO 10/07/21 GAURAV OTOOLE DO Oct 07, 2021 02:33
[2021-10-07] MEDS ORDERED: KETOROLAC 60 MG/2 ML VIAL IM STA (02:36)
[2021-10-07] MEDS ORDERED: ORPHENADRINE 60 MG/2 ML (NORFLEX) AMP (ED ONLY) IM STA (02:36)
[2021-10-07] MEDS ORDERED: AMOX1TAB12 (02:37)
[2021-10-07] MEDS ORDERED: PRD10T (02:37)
[2021-10-07] MEDS ORDERED: CYCL5TAB PO (02:41)
[2021-10-07 03:00] VITALS: BP 128/56
== END 2021-10-07 03:00 | disposition home or self-care (01) ==
LOC: EDUNIT# 02:12 → ER FS 02:15
DX: S33.5XXA Sprain of ligaments of lumbar spine, initial encounter (principal); M70.8 Other soft tissue disorders related to use, overuse and pressure; W29.3XXA Contact with powered garden and outdoor hand tools and machinery, initial encounter
CPT/HCPCS: 99284

== ENCOUNTER 2022-01-08 01:16 | Emergency (ER) | payer MEDICARE, OTHER ==
[~2022-01-08] VITALS: Ht 175 cm; Wt 68.6 kg
[~2022-01-08 01:16] MED LIST changes: +AMOX1TAB12; +CYCL5TAB PO; +PRD10T
[2022-01-08 01:23] VITALS: BP 141/76
[2022-01-08] MEDS ORDERED: CYCL10TA25 PO (01:41)
[2022-01-08] MEDS ORDERED: LIDO700A45 TP (01:41)
[2022-01-08] MEDS ORDERED: NAPR-1088 PO (01:41)
--- NOTE | 2022-01-08 01:41 | ED Back Pain ---
General Chief Complaint: Back Problems Stated Complaint: SIDE/BACK PAIN Nursing Triage Note: Pt states that he was constipated earlier today and then was able to get his bowels to move, then around 2300 yesterday he started having right flank and back pain that is reproducible w/ movement and palpation. He took a Tramadol prior to arrival but it did not help with the pain. Source of Information: Patient Exam Limitations: No Limitations History of Present Illness Date Seen by Provider: Jan 08, 2022 Time Seen by Provider: 01:20 Initial Comments 76-year-old male coming in due to right-sided lower back pain. Occurred around 11 PM yesterday, tried a tramadol which helped some but is still there. Similar to pain he has had in the past which she presented to the emergency department. He says he was sitting in a chair trying to sleep and feels like he was in an uncomfortable position which started the pain. Denies any numbness, weakness, bowel or bladder issue, difficulty walking, abdominal pain, nausea, vomiting, diarrhea, dysuria, hematuria, or any other concerns. Allergies and Home Medications Allergies Coded Allergies: acetaminophen (Verified Allergy, Unknown, 10/31/18) codeine (Verified Allergy, Unknown, 10/31/18) hydrocodone (Verified Allergy, Unknown, 10/31/18) rofecoxib (Verified Allergy, Unknown, 10/31/18) Patient Home Medication List Home Medication List Reviewed: Yes Amoxicillin/Potassium Clav (Amox Tr-K Clv 875-125 mg Tab) 1 Each Tablet, (Reported) Entered as Reported by: JOSE ZAMORA on 10/07/21236 Cyclobenzaprine HCl (Cyclobenzaprine HCl) 5 Mg Tablet, 5 MG PO Q8H PRN for PAIN- SEVERE (8-10) Prescribed by: GAURAV OTOOLE on 10/07/21 0241 Diclofenac Sodium (Voltaren) 100 Gm Gel..gram., 1 GM TP Q6H PRN for PAIN-MILD TO MODERATE Prescribed by: KELSEY RIVERA on 10/31/18 1135 Prednisone (Prednisone) 10 Mg Tab, (Reported) Entered as Reported by: JOSE ZAMORA on 10/07/21 023 Tramadol HCl (Tramadol HCl) 50 Mg Tablet, 50 MG PO Q6H PRN for PAIN-SEVERE (8- 10) Prescribed by: VALENTINE VERGARA on 09/27/21 0628 Review of Systems Constitutional: No fever EENTM: No blurred vision Respiratory: No cough Cardiovascular: No chest pain Gastrointestinal: No abdominal pain Genitourinary: no symptoms reported Musculoskeletal: back pain Skin: no symptoms reported Psychiatric/Neurological: No Symptoms Reported All Other Systems Reviewed Negative Unless Noted: Yes Past Cgvrqyx-Qfqhsp-Fliqqz Hx Patient Social History Tobacco Use?: No Seasonal Allergies Seasonal Allergies: No Past Medical History Surgeries: Yes (heart valve replacement; knee scope; EGD) Cardiac, Coronary Stent, Orthopedic Respiratory: No Cardiac: Yes (CHF ) Cardiomyopathy, Valvular Heart Disease Integumentary: No Physical Exam Vital Signs Vital Signs - First Documented 01/08/22 01:23 Temp 36.6 Pulse 83 Resp 18 B/P (MAP) 141/76 (97) Pulse Ox 99 O2 Delivery Room Air Capillary Refill : Less Than 3 Seconds Height, Weight, BMI Height: 5'9.50" Weight: 190lbs. oz. 86.273526ih; 22.00 BMI Method:Stated General Appearance: No Apparent Distress, WD/WN HEENT: PERRL/EOMI, Normal ENT Inspection, Pharynx Normal Neck: Full Range of Motion, Normal Inspection, Non Tender, Supple Cardiovascular: Regular Rate, Rhythm, No Edema, Normal Peripheral Pulses Respiratory: Chest Non Tender, Lungs Clear, Normal Breath Sounds, No Accessory Muscle Use, No Respiratory Distress Gastrointestinal: Normal Bowel Sounds, Non Tender, Soft; No Distended, No Guarding Back: Normal Inspection, No CVA Tenderness, No Vertebral Tenderness, Other (Right-sided paravertebral tenderness, negative straight leg test, normal perineal sensation, 5 out of 5 hip flexor and extensor strength, 5 out of 5 knee flexion extension, 5 out of 5 foot dorsiflexion and plantarflexion) Extremity: Normal Capillary Refill, Normal Inspection, Normal Range of Motion, Non Tender, No Calf Tenderness, No Pedal Edema Neurologic/Psychiatric: Alert, No Motor/Sensory Deficits, Normal Mood/Affect, Other (Normal gait) Skin: Normal Color, Warm/Dry Lymphatic: No Adenopathy Progress/Results/Core Measures Results/Orders My Orders Orders - SANTA SANTANA MD Orphenadrine Inj (Ed Only) (Norflex Inje (01/08/22 01:45) Ibuprofen Tablet (Motrin Tablet) (01/08/22 01:45) Vital Signs/I&O 01/08/22 01:23 Temp 36.6 Pulse 83 Resp 18 B/P (MAP) 141/76 (97) Pulse Ox 99 O2 Delivery Room Air Blood Pressure Mean: 97 Progress Progress Note : Progress Note 76-year-old male with above history coming in due to right lower back pain. ABCs were intact and vitals were stable on presentation. Physical exam with right paraspinal muscular tenderness which reproduces his pain. Pain also reproduced with any type of range of motion of his back. Neuro exam is normal. I did a [id number] ultrasound showing no hydronephrosis on the right making ureterolithiasis unlikely. Additionally his abdominal aorta was roughly 3 cm in all areas making ruptured AAA unlikely as a cause of his back pain. He was given Norflex as well as ibuprofen for pain. I believe he is stable for discharge with outpatient follow-up. He was sent home and strict return precautions. Departure Impression Primary Impression: Back strain Qualified Codes: S39.012A - Strain of muscle, fascia and tendon of lower back, initial encounter Disposition: HOME, SELF-CARE Condition: Stable Departure-Patient Inst. Decision time for Depature: 01:39 Referrals: SELFCAREY MD (PCP/Family) Primary Care Physician Patient Instructions: Low Back Pain (DC) Add. Discharge Instructions: I think you slept on your back wrong and likely cause pain going across the lateral side of your abdomen. I sent a muscle relaxer to [facility] which is the only pharmacy opens tomorrow. I also sent in a pain medicine that is an anti- inflammatory. I also sent in lidocaine patches which I want you to put where you hurt the most. Follow-up with your regular doctor on Sunday if you are not feeling better. Scripts Lidocaine (Lidocaine 5% Patch) 5 % Adh..patch 1 EACH TP Q12H PRN for Neuropathic pain MDD 2 for 7 Days, #14 PATCH 2 patches max for 12 hours, then 12 hours patch-free period. Prov: SANTA SANTANA MD 01/08/22 Cyclobenzaprine HCl (Cyclobenzaprine HCl) 10 Mg Tablet 10 MG PO TID PRN for SPASMS for 5 Days, #15 TAB Prov: SANTA SANTANA MD 01/08/22 Naproxen (Naproxen) 250 Mg Tablet 250 MG PO BID for 7 Days, #14 TAB Prov: SANTA SANTANA MD 01/08/22 SANTA SANTANA MD Jan 08, 2022 01:41
[2022-01-08] MEDS ORDERED: IBUPROFEN 600 MG (MOTRIN) TAB PO ONE (01:45)
[2022-01-08] MEDS ORDERED: ORPHENADRINE 60 MG/2 ML (NORFLEX) AMP (ED ONLY) IM ONE (01:45)
== END 2022-01-08 01:47 | disposition home or self-care (01) ==
LOC: EDUNIT# 01:16 → ER FS 01:19
DX: S39.012A Strain of muscle, fascia and tendon of lower back, initial encounter (principal); Z28.310 Unvaccinated for COVID-19; X58.XXXA Exposure to other specified factors, initial encounter
CPT/HCPCS: 99284

== ENCOUNTER 2022-02-26 11:06 | Emergency (ER) | payer MEDICARE, OTHER ==
[~2022-02-26] VITALS: Ht 175.2 cm; Wt 68.6 kg
[~2022-02-26 11:06] MED LIST changes: +CYCL10TA25 PO; +LIDO700A45 TP; +NAPR-1088 PO
[2022-02-26] MEDS ORDERED: ORPHENADRINE 60 MG/2 ML (NORFLEX) AMP (ED ONLY) IM ONE (11:30)
[2022-02-26] MEDS ORDERED: KETOROLAC 30 MG/ML VIAL IM ONE (11:30)
--- NOTE | 2022-02-26 11:43 | ED Back Pain ---
General Chief Complaint: Back Problems Stated Complaint: BACK PAIN Nursing Triage Note: Patient presents to the ED with c/o lower back pain. States he has been working around the house and in his garden this week. Reports chronic back pain but reports that pain is worse today. Source of Information: Patient Exam Limitations: No Limitations History of Present Illness Date Seen by Provider: Feb 26, 2022 Time Seen by Provider: 11:00 Initial Comments Patient is a 76-year-old male with chronic intermittent back pain with 2 previous back surgeries who presents with exacerbation of chronic back pain for the past week. Patient has been working on his garden lifting heavy watermelon and doing [employer]. Reports sharp right lower paravertebral pain worse with palpation movement and bending. This is similar location pattern severity is prior back pain. He was evaluated at [facility] earlier this week and given a muscle relaxer and steroid shot. He is continue to take tramadol limited relief. He denies radicular findings or complaints. No urinary frequency urgency dysuria. No flank pain,. No fever chills or sweats. No other acute symptoms or complaints. Location: Lumbar Spine, Paraspinous Muscles Timing/Duration: 1 Week Severity: Moderate Pain/Injury Location: Other Radiation: Other Method of Injury: Other Modifying Factors: Improves With Other Associated Symptoms: other Allergies and Home Medications Allergies Coded Allergies: acetaminophen (Verified Allergy, Unknown, 10/31/18) codeine (Verified Allergy, Unknown, 10/31/18) hydrocodone (Verified Allergy, Unknown, 10/31/18) rofecoxib (Verified Allergy, Unknown, 10/31/18) Patient Home Medication List Home Medication List Reviewed: Yes Amoxicillin/Potassium Clav (Amox Tr-K Clv 875-125 mg Tab) 1 Each Tablet, (Report ed) Entered as Reported by: JOSE ZAMORA on 10/07/21 0237 Cyclobenzaprine HCl (Cyclobenzaprine HCl) 5 Mg Tablet, 5 MG PO Q8H PRN for PAIN- SEVERE (8-10) Prescribed by: GAURAV OTOOLE on 10/07/21 0241 Cyclobenzaprine HCl (Cyclobenzaprine HCl) 10 Mg Tablet, 10 MG PO TID PRN for SPASMS Prescribed by: SANTA SANTANA on 01/08/22 0141 Diclofenac Sodium (Voltaren) 100 Gm Gel..gram., 1 GM TP Q6H PRN for PAIN-MILD TO MODERATE Prescribed by: KELSEY RIVERA on 10/31/18 1135 Lidocaine (Lidocaine 5% Patch) 5 % Adh..patch, 1 EACH TP Q12H PRN for Neuropathic pain Prescribed by: SANTA SANTANA on 01/08/22 0141 Naproxen (Naproxen) 250 Mg Tablet, 250 MG PO BID Prescribed by: SANTA SANTANA on 01/08/22 0141 Prednisone (Prednisone) 10 Mg Tab, (Reported) Entered as Reported by: JOSE ZAMORA on 10/07/21 0237 Tramadol HCl (Tramadol HCl) 50 Mg Tablet, 50 MG PO Q6H PRN for PAIN-SEVERE (8- 10) Prescribed by: VALENTINE VERGARA on 09/27/21 1723 Review of Systems Constitutional: see HPI EENTM: see HPI Respiratory: see HPI Cardiovascular: see HPI Gastrointestinal: see HPI Genitourinary: see HPI Musculoskeletal: see HPI Skin: see HPI Psychiatric/Neurological: See HPI All Other Systems Reviewed Negative Unless Noted: No Past Fokjfoq-Ranokj-Xupssd Hx Patient Social History Tobacco Use?: Yes Use of E-Cig and/or Vaping dev: No Substance use?: No Alcohol Use?: No Pt feels they are or have been: No Seasonal Allergies Seasonal Allergies: No Past Medical History Surgery/Hospitalization HX: Chronic back pain; HTN; CHF; valvular heart disease; hear valve replacement; Coronary stent; EGD Knee arthroscopy Surgeries: Yes (heart valve replacement; knee scope; EGD) Cardiac, Coronary Stent, Orthopedic Respiratory: No Cardiac: Yes (CHF ) Cardiomyopathy, Valvular Heart Disease Integumentary: No Physical Exam Vital Signs Vital Signs - First Documented 02/26/22 11:23 Temp 36.2 Pulse 65 Resp 16 B/P (MAP) 87/62 (70) Pulse Ox 97 O2 Delivery Room Air Capillary Refill : Less Than 3 Seconds Height, Weight, BMI Height: 5'9.50" Weight: 190lbs. oz. 86.928409uq; 22.00 BMI Method:Stated General Appearance: No Apparent Distress, WD/WN, Anxious HEENT: PERRL/EOMI, Normal ENT Inspection, Pharynx Normal Cardiovascular: Regular Rate, Rhythm, No Edema Respiratory: Chest Non Tender, Lungs Clear Gastrointestinal: Non Tender, Soft Back: Normal Inspection, No CVA Tenderness, Decreased Range of Motion, Muscle Spasm (Right lumbar paravertebral muscle pain and spasm tenderness.) Extremity: No Calf Tenderness Neurologic/Psychiatric: Alert, Oriented x3, No Motor/Sensory Deficits Progress/Results/Core Measures Results/Orders My Orders Orders - HAO TENORIO DO Ketorolac Injection (Toradol Injection) (02/26/22 11:30) Orphenadrine Inj (Ed Only) (Norflex Inje (02/26/22 11:30) Oxycodone Immediate Rel Tablet (Oxyir Ta (02/26/22 11:30) Lumbar Spine 2 Or 3 View (02/26/22 11:25) Medications Given in ED Current Medications Medications Dose Ordered Sig/Makenzie Route Start Time Stop Time Status Last Admin Dose Admin Ketorolac Tromethamine 30 mg ONCE ONCE IM 02/26/22 11:30 02/26/22 11:31 DC 02/26/22 11:33 30 MG Orphenadrine Citrate 60 mg ONCE ONCE IM 02/26/22 11:30 02/26/22 11:31 DC 02/26/22 11:33 60 MG Oxycodone HCl 5 mg ONCE ONCE PO 02/26/22 11:30 02/26/22 11:31 DC 02/26/22 11:33 5 MG Vital Signs/I&O 02/26/22 11:23 Temp 36.2 Pulse 65 Resp 16 B/P (MAP) 87/62 (70) Pulse Ox 97 O2 Delivery Room Air Blood Pressure Mean: 70 Departure Communication (Admissions) X-ray lumbar series: No acute findings on preliminary review. Reproducible musculoskeletal pain in setting of chronic back pain. No neurolo gic deficits. Pain improved with treatment. Imaging studies are nondiagnostic. Recommendations supportive care with PCP follow-up coordinate additional work- up and pain management. Impression Primary Impression: Exacerbation lumbar back pain Disposition: 01 HOME, SELF-CARE Condition: Stable Departure-Patient Inst. Decision time for Depature: 11:46 Referrals: SELFCAREY MD (PCP) Primary Care Physician Patient Instructions: Low Back Pain (DC) Add. Discharge Instructions: You were evaluated in the emergency department for exacerbation of lower back pain. Please take newly prescribed medications as directed. Follow-up with your PCP in 2 to 3 days for reevaluation to recheck blood pressure. Return to the ED if new or worsening symptoms. All discharge instructions reviewed with patient and/or family. Voiced underst anding. Scripts Oxycodone HCl (Oxycodone HCl) 10 Mg Tablet 10 MG PO Q8H for 7 Days, #10 TAB Prov: HAO TENORIO DO 02/26/22 Methylprednisolone (Methylprednisolone Dose Pack) 4 Mg Tab.ds.pk 4 MG PO UD for 6 Days, #21 PKG PER DOSE PACK INSTRUCTIONS Prov: HAO TENORIO DO 02/26/22 HAO TENORIO DO Feb 26, 2022 11:43
[2022-02-26] MEDS ORDERED: METH4TAB10 PO (11:48)
[2022-02-26] MEDS ORDERED: OXYC10TA7 PO (11:48)
[2022-02-26 12:05] VITALS: BP 91/63
--- NOTE | 2022-02-26 12:19 | Diagnostic Imaging Report ---
EXAMINATION: Lumbosacral spine 2 or 3 views HISTORY: Low back pain. History of prior surgery. COMPARISON: 09/27/2021. FINDINGS: There is no acute fracture or dislocation of the lumbar spine. Posterior fusion changes are visualized from L3 to S1 with bipedicle screws and fusion rods. No evidence of hardware fracture. There is right convexity curvature of the lumbar spine. No suspicious focal osseous lesions. The prevertebral soft tissues are unremarkable. IMPRESSION: 1. No acute fracture or dislocation in the lumbar spine. 2. Posterior fusion from L3 to S1. No hardware fracture. Dictated by: Dictated on workstation # [id number]
== END 2022-02-26 12:12 | disposition home or self-care (01) ==
LOC: EDUNIT# 11:06 → ER FS 11:07
DX: M54.50 Low back pain, unspecified (principal); G89.29 Other chronic pain; Z88.6 Allergy status to analgesic agent; Z88.5 Allergy status to narcotic agent; Z98.890 Other specified postprocedural states; X50.0XXA Overexertion from strenuous movement or load, initial encounter; Y92.89 Other specified places as the place of occurrence of the external cause
CPT/HCPCS: 72100

== ENCOUNTER 2022-03-16 11:42 | Emergency (ER) | payer MEDICARE, OTHER ==
[~2022-03-16] VITALS: Ht 175.2 cm; Wt 67.0 kg
[~2022-03-16 11:42] MED LIST changes: +METH4TAB10 PO; +OXYC10TA7 PO
[2022-03-16 11:44] VITALS: BP 125/74
[2022-03-16] MEDS ORDERED: ORPHENADRINE 60 MG/2 ML (NORFLEX) AMP (ED ONLY) IM ONE (12:15)
[2022-03-16] MEDS ORDERED: GABAPENTIN 100 MG (NEURONTIN) CAP PO ONE (12:15)
[2022-03-16] MEDS ORDERED: morphine INJ 10 MG/ML 1ML (SYR OR VIAL) IM STA (12:27)
--- NOTE | 2022-03-16 12:35 | ED Back Pain ---
General Chief Complaint: Back Problems Stated Complaint: BACK PAIN Nursing Triage Note: Patient c/o Rt. upper Back pain that started a couple wks ago. Pt. denies any recent falls or injury to his back. Pt. states his pain is worse with deep breath and states it is relieved laying flat. Pt. states he has a light cough. Pt. states he has been seen here at this ER for this, seen Urgent Care, and has seen his PCP for this compliant. Pt. states he has had a Xray done in this ER for this compliant. Pt. states his PCP prescribed him Tramadol and a muscle relaxant. Pt. denies those medications helping with his pain. Pt. points more to Rt. rib cage area when asked to show where the pain is and with palpation. Pt. states he does bending, twisting, and lifting objects for work. Pt. walked into ER overflow room with steady gait. Source of Information: Patient, Family Exam Limitations: No Limitations History of Present Illness Date Seen by Provider: Mar 16, 2022 Time Seen by Provider: 11:46 Initial Comments 76-year-old male with past medical history of metastatic prostate cancer with mets to multiple bony areas including he believes spine and ribs coming in due to right mid thorax pain. The pain has been there constantly for several months, worsening over the past couple weeks. He has had imaging of plain films recently which did not show any acute abnormalities. He believes he has his bone scan coming up with his oncologist soon. He has been taking tramadol which only helps for a couple of hours. He has oxycodone written which is 10 mg, but he says it is too strong and he does not like the way it makes him feel. He does not like to feel constipated afterwards. He has been taking MiraLAX when he takes it. Denies any fever, weakness, numbness, bowel or bladder issue, midline spinal tenderness, recent falls, chest pain, shortness of breath, or any other concerns. Allergies and Home Medications Allergies Coded Allergies: acetaminophen (Verified Allergy, Unknown, 10/31/18) codeine (Verified Allergy, Unknown, 10/31/18) hydrocodone (Verified Allergy, Unknown, 10/31/18) rofecoxib (Verified Allergy, Unknown, 10/31/18) Patient Home Medication List Home Medication List Reviewed: Yes Amoxicillin/Potassium Clav (Amox Tr-K Clv 525-185 mg Tab) 1 Each Tablet, (Reported) Entered as Reported by: JOSE ZAMORA on 10/07/21 0237 Cyclobenzaprine HCl (Cyclobenzaprine HCl) 5 Mg Tablet, 5 MG PO Q8H PRN for PAIN- SEVERE (8-10) Prescribed by: GAURAV OTOOLE on 10/07/21 0241 Cyclobenzaprine HCl (Cyclobenzaprine HCl) 10 Mg Tablet, 10 MG PO TID PRN for SPASMS Prescribed by: SANTA SANTANA on 01/08/22 0141 Diclofenac Sodium (Voltaren) 100 Gm Gel..gram., 1 GM TP Q6H PRN for PAIN-MILD TO MODERATE Prescribed by: KELSEY RIVERA on 10/31/18 1135 Lidocaine (Lidocaine 5% Patch) 5 % Adh..patch, 1 EACH TP Q12H PRN for Neuropathic pain Prescribed by: SANTA SANTANA on 01/08/22 014 Methylprednisolone (Methylprednisolone Dose Pack) 4 Mg Tab.ds.pk, 4 MG PO UD Prescribed by: HAO TENORIO on 02/26/22 1148 Naproxen (Naproxen) 250 Mg Tablet, 250 MG PO BID Prescribed by: SANTA SANTANA on 01/08/22 014 Oxycodone HCl (Oxycodone HCl) 10 Mg Tablet, 10 MG PO Q8H Prescribed by: HAO TENORIO on 02/26/22 1149 Prednisone (Prednisone) 10 Mg Tab, (Reported) Entered as Reported by: JOSE ZAMORA on 10/07/21 0237 Tramadol HCl (Tramadol HCl) 50 Mg Tablet, 50 MG PO Q6H PRN for PAIN-SEVERE (8- 10) Prescribed by: VALENTINE VERGARA on 09/27/21 1723 Review of Systems Constitutional: No fever EENTM: No blurred vision Respiratory: no symptoms reported Cardiovascular: no symptoms reported Gastrointestinal: no symptoms reported Genitourinary: no symptoms reported Musculoskeletal: see HPI Skin: no symptoms reported Psychiatric/Neurological: No Symptoms Reported All Other Systems Reviewed Negative Unless Noted: Yes Past Onjoldk-Foesgz-Rbxjwc Hx Patient Social History Tobacco Use?: No Use of E-Cig and/or Vaping dev: No Use of E-Cig and/or Vaping Stan: Never a User Substance use?: No Alcohol Use?: No Pt feels they are or have been: No Immunizations Up To Date Influenza Vaccine Up-to-Date: No; Not Current Seasonal Allergies Seasonal Allergies: No Past Medical History Surgery/Hospitalization HX: Chronic back pain; HTN; CHF; valvular heart disease; hear valve replacement; Coronary stent; EGD Knee arthroscopy Surgeries: Yes (heart valve replacement; knee scope; EGD) Cardiac, Coronary Stent, Orthopedic Respiratory: No Cardiac: Yes (CHF ) Cardiomyopathy, Valvular Heart Disease Integumentary: No Physical Exam Vital Signs Vital Signs - First Documented 03/16/22 11:44 Temp 36.3 Pulse 77 Resp 18 B/P (MAP) 125/74 (91) Pulse Ox 99 O2 Delivery Room Air Capillary Refill : Height, Weight, BMI Height: 5'9.50" Weight: 190lbs. oz. 86.759776cb; 21.00 BMI Method:Stated General Appearance: No Apparent Distress, WD/WN HEENT: PERRL/EOMI, Normal ENT Inspection, Pharynx Normal Neck: Full Range of Motion, Normal Inspection, Non Tender, Supple Cardiovascular: Regular Rate, Rhythm, No Edema, Normal Peripheral Pulses Respiratory: Chest Non Tender, Lungs Clear, Normal Breath Sounds, No Accessory Muscle Use, No Respiratory Distress Gastrointestinal: Normal Bowel Sounds, Non Tender, Soft; No Guarding Back: Normal Inspection, No CVA Tenderness, No Vertebral Tenderness, Other (Right posterior lower rib pain to a single location which recreates his symptoms) Extremity: Normal Capillary Refill, Normal Inspection, Normal Range of Motion, Non Tender, No Calf Tenderness Neurologic/Psychiatric: Alert, Oriented x3, No Motor/Sensory Deficits, Normal Mood/Affect Skin: Normal Color, Warm/Dry Lymphatic: No Adenopathy Progress/Results/Core Measures Results/Orders My Orders Orders - SANTA SANTANA MD Orphenadrine Inj (Ed Only) (Norflex Inje (03/16/22 12:15) Morphine Injection (Morphine Injection (03/16/22 12:27) Vital Signs/I&O 03/16/22 11:44 Temp 36.3 Pulse 77 Resp 18 B/P (MAP) 125/74 (91) Pulse Ox 99 O2 Delivery Room Air Blood Pressure Mean: 91 Progress Progress Note : Progress Note 76-year-old male with above history coming in due to right mid back pain. ABCs were intact and vitals were stable on presentation. Physical exam reassuring other than the focal tenderness to 1 spot over his rib. Neuro exam is normal. 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 He does have follow-up with his oncologist soon. In regards to medication classes, he has tried almost everything, and does not get relief. At this point I recommended following up with a pain management physician to see if they can do some type of nerve block. I also recommended him following up with his oncologist to discuss potential radiation to the area for palliative pain management. He does have the oxycodone tens at home. He says they are too strong, so I counseled him to break it in half and take half the dose to see if that helps. He is otherwise stable for discharge with outpatient follow-up. He was sent home with strict return precautions. Of note, the patient has follow up with his oncologist every 6 weeks and has repeat scans due soon. Departure Impression Primary Impression: Thoracic back pain Qualified Codes: M54.6 - Pain in thoracic spine; G89.29 - Other chronic pain Disposition: HOME, SELF-CARE Condition: Stable Departure-Patient Inst. Decision time for Depature: 12:45 Referrals: CAREY DE LA CRUZ MD (PCP) Primary Care Physician Patient Instructions: Upper Back Pain ED Add. Discharge Instructions: I do think your pain is most likely due to the cancer probably in your ribs. I recommend taking your same medications like you are prescribed, but you can cut the oxycodone in half to see if that helps. Be sure to take the MiraLAX and stool softener with that. I recommend talking with either Dr. De La Cruz or your oncologist about getting a referral to a pain management physician to see if they can do some type of nerve block to that area. Your oncologist may be able to refer you to a radiation specialist as well if this is tumor related and they could try to shrink it to help with pain. The pain medicine you are taking is not lasting long enough, you can talk with your doctors about potentially a fentanyl patch. SANTA SANTANA MD Mar 16, 2022 12:35
== END 2022-03-16 12:54 | disposition home or self-care (01) ==
LOC: EDUNIT# 11:42 → ER FS 11:44
DX: M54.6 Pain in thoracic spine (principal); Z28.310 Unvaccinated for COVID-19
CPT/HCPCS: 99284

== ENCOUNTER 2022-05-09 20:54 | Emergency (ER) | payer MEDICARE, OTHER ==
[~2022-05-09] VITALS: Ht 170 cm; Wt 64.5 kg
--- NOTE | 2022-05-09 22:04 | Diagnostic Imaging Report ---
PROCEDURE: CT head and CT cervical spine without contrast. TECHNIQUE: Multiple contiguous axial images were obtained through the brain and cervical spine without the use of intravenous contrast. Sagittal and coronal reformations through the cervical spine were then performed. Auto Exposure Controls were utilized during the CT exam to meet ALARA standards for radiation dose reduction. INDICATION: Fall. Scalp/forehead contusion. Neck pain. COMPARISON: No priors. FINDINGS: CT HEAD: There is no hemorrhage, hydrocephalus, cerebral edema, mass, mass effect or evidence for elevated intracranial pressures. The basilar cisterns patent. There is no sulcal effacement, no calvarial fracture deformity, no hemo-sinus, no pneumocephalus. We do note some well-demarcated lytic calvarial foci bilaterally. There is mild senescent cortical atrophy and periventricular white matter small vessel disease as well as atherosclerotic vascular calcifications. CT CERVICAL SPINE: There are 2 separable anterior fusion constructs at the C3-C4 as well as C5, C6 and C7. They appeared solid. Alignment across, above and below the fusions is anatomic. No paraspinal mass, hemorrhage or fluid collection. There are widespread new lytic lesions throughout the cervical vertebral bodies and posterior elements, all new from cervical CT 10/04/2015. This may be metastatic disease or multiple myeloma, correlate clinically. No pathological fracture however and no facet joint dislocation. No acute hardware pathology. IMPRESSION: CT HEAD: No intracranial hemorrhage, cerebral edema or evidence for brain mass. No acute intracerebral pathology. A few lytic calvarial lesions present with no soft tissue mass evident. CT CERVICAL SPINE: Intact multilevel ACDF appears solid. Multiple new widespread lytic cervical spinal and upper thoracic spinal lesions have developed since the study of 2015 suspect for neoplasm. Leading considerations would be multiple myeloma versus metastatic disease. Dictated by: Dictated on workstation # [id number]
--- NOTE | 2022-05-09 22:06 | Diagnostic Imaging Report ---
INDICATION: Patellar pain following a fall. FINDINGS: Postsurgical changes to the medial femoral condyle. 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 No patellar fracture. There are chronic ossifications along the course of the medial collateral ligament. There is chondrocalcinosis. IMPRESSION: Degenerative and postsurgical changes with old ligamentous sequelae at the level of the medial collateral. However no fracture and, in particular, the patella appeared nonacute. Dictated by: Dictated on workstation # [id number]
--- NOTE | 2022-05-09 22:25 | ED Fall/Injury ---
General Chief Complaint: Trauma-Non Activation Stated Complaint: FALL,R KNEE PAIN,HIT HEAD Nursing Triage Note: Patient arrival per POV assisted by near ER entrance for drop off. With use of his walker, patient ambulated to use restroom before arrival to ED 5. Pt tripped in garage on a cord yesterday 05/08/22 at noon and fell on concrete without LOC. Pt c/o worsening pain in R knee. Noted hematoma to right side of forehead. Pt on ASA 81 mg. 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 Source: patient, spouse History of Present Illness Date Seen by Provider: May 09, 2022 Time Seen by Provider: 20:58 Initial Comments 77-year-old male presenting to the emergency department by private vehicle with complaints of increased head, neck, right knee pain since having a fall yesterday at noon. He states that he tripped on a cord in his garage and fell on concrete. He did not have any loss of consciousness. He denies having nausea, vomiting, change in vision, abdominal pain. He has some lower chest wall pain since the fall. He takes chronic pain medicine of oxycodone 10 mg twice a day. He has a history of metastatic disease to his bones. He was concerned that the pain was worse and not improving with his chronic medications. Location Injury Occurred: Patient's garage Occurred: yesterday Severity: severe Injuries/Pain Location: head, face, neck, lower extremity (Right knee) Context: tripped Loss of Consciousness: no loss of consciousness Modifying Factors: Worse With Movement Associated Symptoms (Fall): No Abdominal Pain, No Confusion, No Dizziness; Headache; No Lightheadedness; Muscle Spasms; No Nausea/Vomiting; Neck Pain; No Ringing in Ears, No Seizures, No Shortness of Air, No Slurred Speech; Trouble Walking (Chronically has trouble walking but more severe now since he injured his knee); No Vision Changes Allergies and Home Medications Allergies Coded Allergies: acetaminophen (Verified Allergy, Unknown, 10/31/18) codeine (Verified Allergy, Unknown, 10/31/18) hydrocodone (Verified Allergy, Unknown, 10/31/18) rofecoxib (Verified Allergy, Unknown, 10/31/18) Patient Home Medication List Home Medication List Reviewed: Yes Amoxicillin/Potassium Clav (Amox Tr-K Clv 875-125 mg Tab) 1 Each Tablet, (Reported) Entered as Reported by: JOSE ZAMORA on 10/07/21 023 Cyclobenzaprine HCl (Cyclobenzaprine HCl) 5 Mg Tablet, 5 MG PO Q8H PRN for PAIN- SEVERE (8-10) Prescribed by: GAURAV OTOOLE on 10/07/21 0241 Cyclobenzaprine HCl (Cyclobenzaprine HCl) 10 Mg Tablet, 10 MG PO TID PRN for SPASMS Prescribed by: SANTA SANTANA on 01/08/22 014 Diclofenac Sodium (Voltaren) 100 Gm Gel..gram., 1 GM TP Q6H PRN for PAIN-MILD TO MODERATE Prescribed by: KELSEY RIVERA on 10/31/18 1135 Ibuprofen (Ibuprofen) 600 Mg Tablet, 600 MG PO Q8H PRN for PAIN-SEVERE (8-10) Prescribed by: VALENTINE VERGARA on 05/09/222242 Lidocaine (Lidocaine 5% Patch) 5 % Adh..patch, 1 EACH TP Q12H PRN for Neuropathic pain Prescribed by: SATNA SANTANA on 01/08/22 014 Methocarbamol (Methocarbamol) 750 Mg Tablet, 750 MG PO Q8H PRN for muscle spasm/neck pain Prescribed by: VALENTINE VERGARA on 05/09/22 224 Methylprednisolone (Methylprednisolone Dose Pack) 4 Mg Tab.ds.pk, 4 MG PO UD Prescribed by: HAO TENORIO on 02/26/22 1148 Naproxen (Naproxen) 250 Mg Tablet, 250 MG PO BID Prescribed by: SANTA SANTANA on 01/08/22 014 Oxycodone HCl (Oxycodone HCl) 10 Mg Tablet, 10 MG PO Q8H Prescribed by: HAO TENORIO on 02/26/22 1149 Prednisone (Prednisone) 10 Mg Tab, (Reported) Entered as Reported by: JOSE ZAMORA on 10/07/21236 Tramadol HCl (Tramadol HCl) 50 Mg Tablet, 50 MG PO Q6H PRN for PAIN-SEVERE (8- 10) Prescribed by: VALENTINE VERGARA on 09/27/21 1723 Review of Systems Review of Systems Constitutional: No chills, No dizziness, No fever Eyes: Denies Blurred Vision, Denies Photophobia, Denies Vision Changes Ears, Nose, Mouth, Throat: denies ear pain, denies ear discharge, denies nose pain, denies nose discharge, denies epistaxis Respiratory: no symptoms reported Cardiovascular: see HPI Gastrointestinal: no symptoms reported Genitourinary: no symptoms reported Musculoskeletal: see HPI Skin: change in color (Bruising to the right forehead and abrasion to the right knee) Psychiatric/Neurological: See HPI; Denies Numbness, Denies Paresthesia Past Zriwges-Zksoge-Unvngt Hx Immunizations Up To Date Influenza Vaccine Up-to-Date: No; Not Current First/Initial COVID19 Vaccinat: unvaccinated Seasonal Allergies Seasonal Allergies: No Past Medical History Surgery/Hospitalization HX: Prostate CA w/ mets, Spinal mets, mass upper L lung hx, chronic back pain; HTN; CHF; valvular heart disease; heart valve replacement; Coronary stent; EGD, Knee arthroscopy, R shoulder replacement Surgeries: Yes (heart valve replacement; knee scope; EGD) Cardiac, Coronary Stent, Orthopedic Respiratory: No Cardiac: Yes (CHF ) Cardiomyopathy, Valvular Heart Disease Integumentary: No Physical Exam Vital Signs Vital Signs - First Documented Capillary Refill : Less Than 3 Seconds Height, Weight, BMI Height: 5'9.50" Weight: 190lbs. oz. 86.538500ii; 22.00 BMI Method:Stated General Appearance: no apparent distress, other (Chronically ill) HEENT: PERRL/EOMI, TMs normal, pharynx normal; No photophobia; other (Negative pringle sign, negative raccoon sign, no CSF otorrhea, no CSF rhinorrhea) Neck: limited range of motion (Chronic neck pain and arthritis limits his range of motion), tender lateral (Paraspinal cervical muscles tender to palpation with spasms); No tender midline Cardiovascular: normal peripheral pulses, regular rate, rhythm Respiratory: No chest non-tender (Mild tenderness to the lower sternum and xi phoid area); lungs clear, normal breath sounds, no respiratory distress, no accessory muscle use Gastrointestinal: normal bowel sounds, non tender, soft, no pulsatile mass Extremities: normal range of motion, normal capillary refill, other (Abrasion and tenderness to the anterior right knee) Neurologic/Psychiatric: alert, oriented x 3 Skin: warm/dry, ecchymosis (Right forehead), other (Superficial abrasion to the right anterior knee over the patella) Progress/Results/Core Measures Results/Orders My Orders Orders - VALENTINE VERGARA MD Ct Head/Cervical Spine Wo (05/09/22 21:17) Knee 4 View Or > Right (05/09/22 21:17) Orphenadrine Inj (Ed Only) (Norflex Inje (05/09/22 22:40) Fentanyl Inj (Sublimaze Injection) (05/09/22 22:40) Vital Signs/I&O 05/09/22 05/09/22 21:05 21:05 Temp 36.9 36.9 Pulse 86 86 Resp 20 20 B/P (MAP) 137/86 (103) 137/86 (103) Pulse Ox 96 96 O2 Delivery Room Air Room Air Blood Pressure Mean: 103 Progress Progress Note #1: Progress Note CT scan of the head and cervical spine to evaluate for possible fracture or intracranial hemorrhage since he had a fall. X-rays of the right knee to evaluate for possible acute bony abnormality after falling. He has had prior surgery on his knee so he has some chronic pain and issues with it anyway. Progress Note #2: Progress Note CT scan of the head and cervical spine read out as no acute fracture or intracranial hemorrhage. He has some lytic lesions consistent with metastatic disease or multiple myeloma. His x-ray of the right knee did not show any acute fracture or bony abnormality but he has chronic changes from prior surgery and advanced arthritis. Counseled patient and spouse on results and will administer pain shot and muscle relaxer here in the ED to try and help with his pain for tonight. Prescribed muscle relaxer and anti-inflammatory to take along with his chronic pain medicine at home. Encouraged to check back with the doctor that prescribes this oxycodone to see if they would adjust to if needed for his acute on chronic pain . Diagnostic Imaging Diagonstic Imaging: Xray Plain Films/CT/US/NM/MRI: knee Comments [facility]. [place], [place] NAME: ANTONIETAROMULO [facility] REC#: [id number] PT STATUS: REG ER : 1945 PHYSICIAN: VALENTINE VERGARA MD ADMIT DATE: 05/09/22/ER FS Draft Date of Exam:05/09/22 KNEE 4 VIEW OR > RIGHT INDICATION: Patellar pain following a fall. FINDINGS: Postsurgical changes to the medial femoral condyle. 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 No patellar fracture. There are chronic ossifications along the course of the medial collateral ligament. There is chondrocalcinosis. IMPRESSION: Degenerative and postsurgical changes with old ligamentous sequelae at the level of the medial collateral. However no fracture and, in particular, the patella appeared nonacute. Dictated on workstation # [id number] Dict: 05/09/222155 Trans: 05/09/222205 [facility] [id number] Interpreted by: ALEE JONES Electronically signed by: Reviewed: Reviewed by Me Diagonstic Imaging: CT Plain Films/CT/US/NM/MRI: c-spine, head Comments [facility] [place] NAME: ROMULO FUNG REC#: [id number] PT STATUS: REG ER : 1945 PHYSICIAN: VALENTINE VERGARA MD ADMIT DATE: 05/09/22/ER FS Draft Date of Exam:05/09/22 CT HEAD/CERVICAL SPINE WO PROCEDURE: CT head and CT cervical spine without contrast. TECHNIQUE: Multiple contiguous axial images were obtained through the brain and cervical spine without the use of intravenous contrast. Sagittal and coronal reformations through the cervical spine were then performed. Auto Exposure Controls were utilized during the CT exam to meet ALARA standards for radiation dose reduction. INDICATION: Fall. Scalp/forehead contusion. Neck pain. COMPARISON: No priors. FINDINGS: CT HEAD: There is no hemorrhage, hydrocephalus, cerebral edema, mass, mass effect or evidence for elevated intracranial pressures. The basilar cisterns patent. There is no sulcal effacement, no calvarial fracture deformity, no hemo-sinus, no pneumocephalus. We do note some well-demarcated lytic calvarial foci bilaterally. There is mild senescent cortical atrophy and periventricular white matter small vessel disease as well as atherosclerotic vascular calcifications. CT CERVICAL SPINE: There are 2 separable anterior fusion constructs at the C3-C4 as well as C5, C6 and C7. They appeared solid. Alignment across, above and below the fusions is anatomic. No paraspinal mass, hemorrhage or fluid collection. There are widespread new lytic lesions throughout the cervical vertebral bodies and posterior elements, all new from cervical CT 10/04/2015. This may be metastatic disease or multiple myeloma, correlate clinically. No pathological fracture however and no facet joint dislocation. No acute hardware pathology. IMPRESSION: CT HEAD: No intracranial hemorrhage, cerebral edema or evidence for brain mass. No acute intracerebral pathology. A few lytic calvarial lesions present with no soft tissue mass evident. CT CERVICAL SPINE: Intact multilevel ACDF appears solid. Multiple new widespread lytic cervical spinal and upper thoracic spinal lesions have developed since the study of 2015 suspect for neoplasm. Leading considerations would be multiple myeloma versus metastatic disease. Dictated on workstation # [id number] Dict: 05/09/222145 Trans: 05/09/222202 [facility] [id number] Interpreted by: ALEE JONES Electronically signed by: Reviewed: Reviewed by Me Departure Impression Primary Impression: Contusion of right knee, initial encounter Additional Impressions: Contusion of face, scalp and neck Qualified Codes: S00.83XA - Contusion of other part of head, initial encounter; S00.03XA - Contusion of scalp, initial encounter; S10.93XA - Contusion of unspecified part of neck, initial encounter Traumatic hematoma of forehead Qualified Codes: S00.83XA - Contusion of other part of head, initial encounter Fall Qualified Codes: W19.XXXA - Unspecified fall, initial encounter Disposition: 01 HOME, SELF-CARE Condition: Stable Departure-Patient Inst. Decision time for Depature: 22:24 Referrals: CAREY DOAN MD (PCP/Family) Primary Care Physician Patient Instructions: Knee Pain ED, Minor Contusion ED, Minor Head Injury, Adult ED, Preventing Falls ED Add. Discharge Instructions: Try ice 15-20 minutes every few hours as needed for pain and bruising. Continue with your home medicine for pain. Check back with clinic for continued concerns. All discharge instructions reviewed with patient and/or family. Voiced understanding. Scripts Methocarbamol (Methocarbamol) 750 Mg Tablet 750 MG PO Q8H PRN for muscle spasm/neck pain for 7 Days, #21 TAB 0 Refills Prov: VALENTINE VERGARA MD 05/09/22 Ibuprofen (Ibuprofen) 600 Mg Tablet 600 MG PO Q8H PRN for PAIN-SEVERE (8-10) for 7 Days, #21 TAB 0 Refills Prov: VALENTINE VERGARA MD 05/09/22 VALENTINE VERGARA MD May 09, 2022 22:25
[2022-05-09] MEDS ORDERED: fentaNYL INJ 100 MCG/2 ML AMP IM STA (22:40)
[2022-05-09] MEDS ORDERED: ORPHENADRINE 60 MG/2 ML (NORFLEX) AMP (ED ONLY) IM STA (22:40)
[2022-05-09] MEDS ORDERED: METH-732 PO (22:43)
[2022-05-09] MEDS ORDERED: IBUP-1773 PO (22:43)
[2022-05-09 22:56] VITALS: BP 106/81
[2022-05-09] MEDS ORDERED: TMSL.4C PO (23:45)
[2022-05-09] MEDS ORDERED: ONDA4TAB11 PO (23:45)
[2022-05-09] MEDS ORDERED: OXYC-710 PO (23:45)
[2022-05-09] MEDS ORDERED: DEXA4TAB PO (23:45)
[2022-05-09] MEDS ORDERED: SPIR25TA5 PO (23:45)
[2022-05-09] MEDS ORDERED: CALC200T50 PO (23:45)
[2022-05-09] MEDS ORDERED: CYAN100071 PO (23:45)
[2022-05-09] MEDS ORDERED: IVAB5TAB PO (23:45)
[2022-05-09] MEDS ORDERED: LISI2.5T13 PO (23:45)
[2022-05-09] MEDS ORDERED: FAMO20TA5 PO (23:45)
[2022-05-09] MEDS ORDERED: ACET325T49 PO (23:45)
[2022-05-09] MEDS ORDERED: DARO300T PO (23:45)
[2022-05-09] MEDS ORDERED: DIGO125T3 PO (23:45)
[2022-05-09] MEDS ORDERED: ASPI-1238 PO (23:45)
[2022-05-09] MEDS ORDERED: POLY119P5 PO (23:45)
[2022-05-09] MEDS ORDERED: FINA5TAB6 PO (23:45)
== END 2022-05-09 22:56 | disposition home or self-care (01) ==
LOC: EDUNIT# 20:54 → ER FS 20:55
DX: S00.03XA Contusion of scalp, initial encounter (principal); S10.93XA Contusion of unspecified part of neck, initial encounter; S80.01XA Contusion of right knee, initial encounter; S00.83XA Contusion of other part of head, initial encounter; Z28.310 Unvaccinated for COVID-19; W01.198A Fall on same level from slipping, tripping and stumbling with subsequent striking against other object, initial encounter; Y93.01 Activity, walking, marching and hiking; Y92.59 Other trade areas as the place of occurrence of the external cause
CPT/HCPCS: 70450; 72125; 73564

== ENCOUNTER 2022-09-28 07:12 | Emergency (ER) | payer MEDICARE, OTHER ==
[~2022-09-28] VITALS: Ht 172 cm; Wt 65.0 kg
[~2022-09-28 07:12] MED LIST changes: +ACET325T49 PO; +ASPI-1238 PO; +CALC200T50 PO; +CYAN100071 PO; +DARO300T PO; +DEXA4TAB PO; +DIGO125T3 PO; +FAMO20TA5 PO; +FINA5TAB6 PO; +IBUP-1773 PO; +IVAB5TAB PO; +LISI2.5T13 PO; +METH-732 PO; +ONDA4TAB11 PO; +POLY119P5 PO; +SPIR25TA5 PO; +TMSL.4C PO; +[UNRECOGNIZED DRUG - CODE] PO
--- NOTE | 2022-09-28 07:19 | ED General ---
General Stated Complaint: FALL SUNDAY/CHEST/L KNEE/BACK History of Present Illness Date Seen by Provider: Sep 28, 2022 Time Seen by Provider: 07:18 Initial Comments 77-year-old male presents with "pain all over" patient fell due to the wind 6 days ago. Patient reports that he "rolled down upon dam" patient has chronic pain but reports it is worse today. He is complaining of pain in his right chest wall, left knee and left lateral lumbar region. Patient already takes chronic pain medication including morphine and oxycodone. Allergies and Home Medications Allergies Coded Allergies: acetaminophen (Verified Allergy, Unknown, 10/31/18) codeine (Verified Allergy, Unknown, 10/31/18) hydrocodone (Verified Allergy, Unknown, 10/31/18) rofecoxib (Verified Allergy, Unknown, 10/31/18) Patient Home Medication List Home Medication List Reviewed: Yes Acetaminophen (Acetaminophen) 325 Mg Tablet, 650 MG PO, (Reported) Entered as Reported by: JOSE ZAMORA on 05/09/222344 Aspirin (Aspirin EC) 81 Mg Tablet.dr, 81 MG PO DAILY, (Reported) Entered as Reported by: JOSE ZAMORA on 05/09/222344 Calcium Citrate (Calcium Citrate) 200 Mg (950 Mg) Tablet, 200 MG PO, (Reported) Entered as Reported by: JOSE ZAMORA on 05/09/222344 Cyanocobalamin (Vitamin B-12) (B-12) 1,000 Mcg Tablet.er, 1,000 MCG PO, (Reported) Entered as Reported by: JOSE ZAMORA on 05/09/222344 Darolutamide (Nubeqa) 300 Mg Tablet, 300 MG PO, (Reported) Entered as Reported by: JOSE ZAMORA on 05/09/222344 Dexamethasone (Dexamethasone) 4 Mg Tablet, 4 MG PO BID, (Reported) Entered as Reported by: JOSE ZAMORA on 05/09/222344 Digoxin (Digoxin) 125 Mcg (0.125 Mg) Tablet, 125 MCG PO DAILY, (Reported) Entered as Reported by: JOSE ZAMORA on 05/09/222344 Famotidine (Famotidine) 20 Mg Tablet, 20 MG PO BID, (Reported) Entered as Reported by: JOSE ZAMORA on 05/09/222344 Finasteride (Finasteride) 5 Mg Tablet, 5 MG PO DAILY, (Reported) Entered as Reported by: JOSE ZAMORA on 05/09/222344 Ibuprofen (Ibuprofen) 600 Mg Tablet, 600 MG PO Q8H PRN for PAIN-SEVERE (8-10) Prescribed by: VALENTINE VERGARA on 05/09/222242 Ivabradine HCl (Corlanor) 5 Mg Tablet, 5 MG PO BID, (Reported) Entered as Reported by: JOSE ZAMORA on 05/09/222344 Lisinopril (Lisinopril) 2.5 Mg Tablet, 1.25 MG PO DAILY, (Reported) Entered as Reported by: JOSE ZAMORA on 05/09/222344 Methocarbamol (Methocarbamol) 750 Mg Tablet, 750 MG PO Q8H PRN for muscle spasm/neck pain Prescribed by: VALENTINE CALVOYART on 05/09/222242 Methocarbamol (Methocarbamol) 750 Mg Tablet, 750 MG PO Q6-8HR Prescribed by: GAURAV OTOOLE on 09/28/22 0849 Ondansetron (Ondansetron Odt) 4 Mg Tab.rapdis, 4 MG PO Q12H PRN for NAUSEA/VOMITING, (Reported) Entered as Reported by: JOSE ZAMORA on 05/09/222344 Oxycodone HCl (Oxycodone HCl ER) 10 Mg Tab.er.12h, 10 MG PO BID, (Reported) Entered as Reported by: JOSE ZAMORA on 05/09/222344 Polyethylene Glycol 3350 (Miralax) 17 Gram/Dose Powder, 119 GM PO BID, (Reported) Entered as Reported by: JOSE ZAMORA on 05/09/222344 Spironolactone (Spironolactone) 25 Mg Tablet, 25 MG PO DAILY, (Reported) Entered as Reported by: JOSE ZAMORA on 05/09/222344 Tamsulosin HCl (Flomax) 0.4 Mg Cap, 0.4 MG PO HS, (Reported) Entered as Reported by: JOSE ZAMORA on 05/09/222344 Review of Systems Review of Systems Constitutional: No chills, No fever Respiratory: see HPI Cardiovascular: no symptoms reported Gastrointestinal: no symptoms reported Genitourinary: no symptoms reported Musculoskeletal: see HPI, back pain, neck pain Skin: no symptoms reported Psychiatric/Neurological: No Symptoms Reported Hematologic/Lymphatic: No Symptoms Reported Past Hrjgvyy-Hwiexl-Rugmga Hx Immunizations Up To Date First/Initial COVID19 Vaccinat: unvaccinated Seasonal Allergies Seasonal Allergies: No Past Medical History Surgery/Hospitalization HX: Prostate CA w/ mets, Spinal mets, mass upper L lung hx, chronic back pain; HTN; CHF; valvular heart disease; heart valve replacement; Coronary stent; EGD, Knee arthroscopy, R shoulder replacement Surgeries: Yes (heart valve replacement; knee scope; EGD) Cardiac, Coronary Stent, Orthopedic Respiratory: No Cardiac: Yes (CHF ) Cardiomyopathy, Valvular Heart Disease Integumentary: No Physical Exam Vital Signs Vital Signs - First Documented 09/28/22 07:28 Temp 36.0 Pulse 93 Resp 18 B/P (MAP) 144/127 (133) Pulse Ox 93 O2 Delivery Room Air Capillary Refill : Height, Weight, BMI Height: 5'9.50" Weight: 190lbs. oz. 86.632412jt; 22.00 BMI Method:Stated General Appearance: No Apparent Distress, WD/WN Neck: Full Range of Motion, Supple, Other (Chronic pain) Respiratory: Lungs Clear, Normal Breath Sounds, Other (Tenderness right chest wall) Cardiovascular: Regular Rate, Rhythm, No Edema Gastrointestinal: Non Tender, Soft Back: No Vertebral Tenderness; Other (Left lateral pain, no vertebral tenderness, step-offs or abnormal exam) Extremity: Normal Capillary Refill, Swelling (Left knee, mild bruise) Neurologic/Psychiatric: Alert, Oriented x3 Skin: Normal Color, Warm/Dry Progress/Results/Core Measures Suspected Sepsis SIRS Temperature: Pulse: Respiratory Rate: Blood Pressure / Mean: Results/Orders My Orders Orders - OTOOLE,GAURAV L DO Knee 3 View Left (09/28/22 07:27) Lumbar Spine 2 Or 3 View (09/28/22 07:27) Ribs/Bilateral With Chest (09/28/22 07:27) Ketorolac Injection (Toradol Injection) (09/28/22 07:27) Orphenadrine Inj (Ed Only) (Norflex Inje (09/28/22 07:27) Vital Signs/I&O 09/28/22 07:28 Temp 36.0 Pulse 93 Resp 18 B/P (MAP) 144/127 (133) Pulse Ox 93 O2 Delivery Room Air Capillary Refill : Progress Note : Progress Note Patient's x-rays were ordered and reviewed with initial interpretation no acute findings by me with final interpretation per radiology reports. I long discussion with patient regarding pain management. He is currently being treated for chronic pain due to cancer and other chronic muscular skeletal conditions. At this time he is on morphine and oxycodone. I do not have an additional pain medication to add. He does take methocarbamol but is currently out is not using it frequently so I will refill a prescription for this. I discussed with patient the need to consider maybe some alternative pain treatment options along with follow-up with his primary care provider to look at other pain modality and treatment options to help with his pain. Patient did have some relief with the Toradol and Norflex. Patient diagnosis and treatment plans are significantly limited by SDOH along with his medications requiring medical management and long-term concerns. Diagnostic Imaging Diagonstic Imaging: Xray Plain Films/CT/US/NM/MRI: knee Comments Date of Exam:09/28/22 KNEE 3 VIEW LEFT INDICATION: Left knee pain. 3 views of left knee shows meniscal calcification. There is slight narrowing of the medial and lateral tibiofemoral joint spaces. There is no fracture or dislocation. IMPRESSION: Degenerative changes in the knee. No acute abnormality seen. Reviewed: Reviewed by Me, Reviewed/Discussed Diagonstic Imaging: Xray Plain Films/CT/US/NM/MRI: other Comments Date of Exam:09/28/22 LUMBAR SPINE 2 OR 3 VIEW INDICATION: Back pain. Lumbar spine FINDINGS: AP and lateral views lumbar spine show postoperative changes from discectomy and dorsal fusion at L3-L4, L4-L5 and L5-S1. There are cages inserted in the L3-L4 and L4-L5 disc spaces. The hardware appears to be intact. Alignment is normal. There is a scoliotic curvature of the lumbar spine convex to the right. The L1-L2 and L2-L3 disc spaces are narrowed with large osteophytes forming. There are no compression fractures. IMPRESSION: Severe spondylosis of the thoracolumbar spine. Postoperative changes from long segment fusion of the lower lumbar spine. No acute abnormality seen. Reviewed: Reviewed by Me, Reviewed/Discussed Comments RIBS/BILATERAL WITH CHEST INDICATION: Rib injury from a fall Bilateral ribs. PA chest and 3 views of the left and right ribs are obtained. 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 There are no displaced rib fractures in the left or right thoracic cage. There are some osteolytic lesions in the left humeral head and neck. Patient has had right shoulder arthroplasty. There is severe narrowing of the left acromiohumeral space with the humeral head impacting the inferior aspect of the acromion. IMPRESSION: There are no acute rib fractures seen. There is no osteolytic expansile lesions in the left anterolateral 7th rib with some osteolytic lesions seen in the left humerus raising concern for metastatic disease or multiple myeloma. Departure Impression Primary Impression: Fall Qualified Codes: W19.XXXA - Unspecified fall, initial encounter Additional Impressions: Contusion of left knee Qualified Codes: S80.02XA - Contusion of left knee, initial encounter Chronic lumbar radiculopathy Chest wall contusion Qualified Codes: S20.211A - Contusion of right front wall of thorax, initial encounter Disposition: 01 HOME, SELF-CARE Condition: Stable Departure-Patient Inst. Referrals: CAERY DE LA CRUZ MD (PCP/Family) Primary Care Physician Patient Instructions: Rib Fracture or Bruised Rib ED, Radiculopathy (DC), CH RONIC PAIN Add. Discharge Instructions: Please follow-up with Dr. De La Cruz to adjust your medications. You may add Voltaren/diclofenac cream. Warm moist heat 15 to 20 minutes at a time 3-4 times daily Scripts Methocarbamol (Methocarbamol) 750 Mg Tablet 750 MG PO Q6-8HR for Back Pain, #30 TAB Prov: GAURAV OTOOLE DO 09/28/22 GAURAV OTOOLE DO Sep 28, 2022 07:19
[2022-09-28] MEDS ORDERED: KETOROLAC 30 MG/ML VIAL IM STA (07:27)
[2022-09-28] MEDS ORDERED: ORPHENADRINE 60 MG/2 ML (NORFLEX) AMP (ED ONLY) IM STA (07:27)
[2022-09-28 07:28] VITALS: BP 144/127
--- NOTE | 2022-09-28 08:21 | Diagnostic Imaging Report ---
INDICATION: Left knee pain. 3 views of left knee shows meniscal calcification. There is slight narrowing of the medial and lateral tibiofemoral joint spaces. There is no fracture or dislocation. IMPRESSION: Degenerative changes in the knee. No acute abnormality seen. Dictated by: Dictated on workstation # [id number]
--- NOTE | 2022-09-28 08:27 | Diagnostic Imaging Report ---
INDICATION: Back pain. Lumbar spine FINDINGS: AP and lateral views lumbar spine show postoperative changes from discectomy and dorsal fusion at L3-L4, L4-L5 and L5-S1. There are cages inserted in the L3-L4 and L4-L5 disc spaces. The hardware appears to be intact. Alignment is normal. There is a scoliotic curvature of the lumbar spine convex to the right. The L1-L2 and L2-L3 disc spaces are narrowed with large osteophytes forming. There are no compression fractures. IMPRESSION: Severe spondylosis of the thoracolumbar spine. Postoperative changes from long segment fusion of the lower lumbar spine. No acute abnormality seen. Dictated by: Dictated on workstation # [id number]
--- NOTE | 2022-09-28 08:34 | Diagnostic Imaging Report ---
INDICATION: Rib injury from a fall Bilateral ribs. PA chest and 3 views of the left and right ribs are obtained. 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 There are no displaced rib fractures in the left or right thoracic cage. There are some osteolytic lesions in the left humeral head and neck. Patient has had right shoulder arthroplasty. There is severe narrowing of the left acromiohumeral space with the humeral head impacting the inferior aspect of the acromion. IMPRESSION: There are no acute rib fractures seen. There is no osteolytic expansile lesions in the left anterolateral 7th rib with some osteolytic lesions seen in the left humerus raising concern for metastatic disease or multiple myeloma. Dictated by: Dictated on workstation # [id number]
[2022-09-28] MEDS ORDERED: METH-732 PO (08:49)
== END 2022-09-28 08:55 | disposition home or self-care (01) ==
LOC: EDUNIT# 07:12 → ER FS 07:14
DX: S80.02XA Contusion of left knee, initial encounter (principal); S20.211A Contusion of right front wall of thorax, initial encounter; M54.16 Radiculopathy, lumbar region; G89.29 Other chronic pain; Z79.1 Long term (current) use of non-steroidal anti-inflammatories (NSAID); Z28.310 Unvaccinated for COVID-19; W18.39XA Other fall on same level, initial encounter; X50.1XXA Overexertion from prolonged static or awkward postures, initial encounter
CPT/HCPCS: 71111; 72100; 73562